=== PATIENT | female | born 1960 | race Caucasian/White ===

== ENCOUNTER → 2018-11-20 | Outpatient (CLI) | payer MEDICARE, OTHER ==
[2018-11-20 15:51] LABS: ABSOLUTE BASOPHILS # (AUTO) 0.1 10^3/uL (0.0-0.2); ABSOLUTE EOSINOPHILS # (AUTO) 0.4 10^3/uL (0.0-0.6); ABSOLUTE LYMPHOCYTES (AUTO) 3.3 10^3/uL (0.5-4.7); ABSOLUTE MONOCYTES (AUTO) 1.7 10^3/uL (0.1-1.4); ABSOLUTE NEUT (AUTO) 10.1 10^3/uL (1.7-8.2); BASOPHILS % (AUTO) 0.4 % (0-2); EOSINOPHILS % (AUTO) 2.7 % (0-6); HEMATOCRIT 44.2 % (36.0-47.0); HEMOGLOBIN 14.8 g/dL (12.0-15.5); LYMPHOCYTES % (AUTO) 21.2 % (13-45); MEAN CORPUSCULAR HEMOGLOBIN 30.8 pg (27.0-33.4); MEAN CORPUSCULAR HGB CONC 33.5 g/dL (32.0-36.0); MEAN CORPUSCULAR VOLUME 92 fl (80-97); MONOCYTES % (AUTO) 11.2 % (3-13); PLATELET COUNT 484 10^3/uL (150-450); RED BLOOD COUNT 4.81 10^6/uL (3.72-5.28); RED CELL DISTRIBUTION WIDTH 14.7 % (11.5-14.0); SEGMENTED NEUTROPHILS % (AUTO) 64.5 % (42-78); TOTAL CELLS COUNTED % (AUTO) 100 %; WHITE BLOOD COUNT 15.6 10^3/uL (4.0-10.5)
[2018-11-20 15:54] LABS: APPEARANCE,URINE CLOUDY; BILIRUBIN,URINE NEGATIVE (NEGATIVE); COLOR,URINE AMBER; GLUCOSE, URINE NEGATIVE (NEGATIVE); KETONES,URINE NEGATIVE (NEGATIVE); LEUKOCYTE ESTERASE,URINE LARGE (NEGATIVE); NITRITE,URINE NEGATIVE (NEGATIVE); PROTEIN,URINE 100 mg/dL (NEGATIVE); URINE SPECIFIC GRAVITY 1.016; UROBILINOGEN,URINE NEGATIVE mg/dL (<2.0)
[2018-11-20 16:06] LABS: ANION GAP 15 (5-19); BLOOD UREA NITROGEN 19 mg/dL (7-20); CALCIUM 10.1 mg/dL (8.4-10.2); CARBON DIOXIDE 15 mmol/L (22-30); CHLORIDE 110 mmol/L (98-107); GLUCOSE 124 mg/dL (75-110); POTASSIUM 4.6 mmol/L (3.6-5.0); SODIUM 139.8 mmol/L (137-145)
--- NOTE | 2018-11-20 16:09 | RADIOLOGY REPORT (SQ) ---
EXAM DESCRIPTION: CHEST PA/LATERAL COMPLETED DATE/TIME: 11/20/2018 3:37 pm REASON FOR STUDY: ESSENTIAL (PRIMARY) HYPERTENSION COMPARISON: None. EXAM PARAMETERS: NUMBER OF VIEWS: two views TECHNIQUE: Digital Frontal and Lateral radiographic views of the chest acquired. RADIATION DOSE: NA LIMITATIONS: none FINDINGS: LUNGS AND PLEURA: No opacities, masses or pneumothorax. No pleural effusion. MEDIASTINUM AND HILAR STRUCTURES: Large retrocardiac hiatal hernia containing the stomach fundus with air-fluid level. HEART AND VASCULAR STRUCTURES: Heart normal size. No evidence for failure. BONES: Diffuse degenerative disc changes thoracic spine HARDWARE: None in the chest. OTHER: No other significant finding. IMPRESSION: No acute infiltrates. Retrocardiac hiatal hernia with air-fluid level TECHNICAL DOCUMENTATION: JOB ID: [id number] [employer]- All Rights Reserved Reading location - IP/workstation name: [email or web address]
--- NOTE | 2018-11-20 23:22 | EKG REPORT ---
SEVERITY:- ABNORMAL ECG - SINUS TACHYCARDIA MULTIPLE ATRIAL PREMATURE COMPLEXES PROBABLE LEFT ATRIAL ABNORMALITY BORDERLINE INFERIOR Q WAVES : Confirmed by: Eusebio Hoskins 20-Nov-2018 23:21:40
== END ==
LOC: OD 14:53
PROVIDERS: ATTEND Orthopaedic Surgery
DX: Z01.810 Encounter for preprocedural cardiovascular examination (principal); Z01.811 Encounter for preprocedural respiratory examination; Z01.812 Encounter for preprocedural laboratory examination; M16.11 Unilateral primary osteoarthritis, right hip; I10 Essential (primary) hypertension
CPT/HCPCS: 36415; 71046; 80048; 81001; 85025; 93005; 93010

== ENCOUNTER → 2019-01-04 | Outpatient (CLI) | payer MEDICARE, OTHER ==
--- NOTE | 2019-01-04 12:11 | RADIOLOGY REPORT (SQ) ---
EXAM DESCRIPTION: U/S RETROPERITON (RENAL/AORTA) COMPLETED DATE/TIME: 01/04/2019 11:59 am REASON FOR STUDY: N18.3 CHRONIC KIDNEY DISEASE, STAGE 3 (MODERATE) N18.3 CHRONIC KIDNEY DISEASE, ST AGE 3 (MODERATE) COMPARISON: None. TECHNIQUE: Dynamic and static grayscale images acquired of the kidneys and bladder and recorded on P ACS. Additional selected color Doppler and spectral images recorded. LIMITATIONS: None. FINDINGS: RIGHT KIDNEY: Asymmetrically small measuring 8.7 cm. Normal echogenicity. No solid or susp icious masses. No hydronephrosis. No calcifications. LEFT KIDNEY: Normal size measuring 10.3 cm. Normal echogenicity. No solid or suspicious masses. No h ydronephrosis. No calcifications. BLADDER: No masses. OTHER FINDINGS: No other significant finding. IMPRESSION: No hydronephrosis. Asymmetrically small right kidney. Otherwise unremarkable renal ultrasound. TECHNICAL DOCUMENTATION: JOB ID: [id number] [employer]- All Rights Reserved Reading location - IP/workstation name: [email or web address]
== END ==
LOC: RAD 11:04
PROVIDERS: ATTEND Internal Medicine Nephrology
DX: N18.3 Chronic kidney disease, stage 3 (moderate) (principal)
CPT/HCPCS: 76770

== ENCOUNTER → 2019-03-29 | Outpatient (CLI) | payer MEDICARE, OTHER ==
[2019-03-29 13:27] LABS: ABSOLUTE BASOPHILS # (AUTO) 0.1 10^3/uL (0.0-0.2); ABSOLUTE EOSINOPHILS # (AUTO) 0.7 10^3/uL (0.0-0.6); ABSOLUTE LYMPHOCYTES (AUTO) 2.7 10^3/uL (0.5-4.7); ABSOLUTE MONOCYTES (AUTO) 1.5 10^3/uL (0.1-1.4); ABSOLUTE NEUT (AUTO) 10.3 10^3/uL (1.7-8.2); BASOPHILS % (AUTO) 0.6 % (0-2); EOSINOPHILS % (AUTO) 4.3 % (0-6); HEMOGLOBIN 14.2 g/dL (12.0-15.5); LYMPHOCYTES % (AUTO) 17.8 % (13-45); MEAN CORPUSCULAR HGB CONC 33.9 g/dL (32.0-36.0); MEAN CORPUSCULAR VOLUME 91 fl (80-97); MONOCYTES % (AUTO) 9.7 % (3-13); PLATELET COUNT 380 10^3/uL (150-450); RED BLOOD COUNT 4.59 10^6/uL (3.72-5.28); RED CELL DISTRIBUTION WIDTH 15.1 % (11.5-14.0); SEGMENTED NEUTROPHILS % (AUTO) 67.6 % (42-78); TOTAL CELLS COUNTED % (AUTO) 100 %; WHITE BLOOD COUNT 15.2 10^3/uL (4.0-10.5)
--- NOTE | 2019-03-29 13:27 | RADIOLOGY REPORT (SQ) ---
EXAM DESCRIPTION: CHEST PA/LATERAL COMPLETED DATE/TIME: 03/29/2019 12:58 pm REASON FOR STUDY: PRE-OP COMPARISON: 11/20/2018 EXAM PARAMETERS: NUMBER OF VIEWS: two views TECHNIQUE: Digital Frontal and Lateral radiographic views of the chest acquired. RADIATION DOSE: NA LIMITATIONS: none FINDINGS: LUNGS AND PLEURA: No opacities, masses or pneumothorax. No pleural effusion. MEDIASTINUM AND HILAR STRUCTURES: No masses or contour abnormalities. HEART AND VASCULAR STRUCTURES: Heart normal size. No evidence for failure. BONES: No acute findings. HARDWARE: None in the chest. OTHER: Large hiatal hernia. IMPRESSION: No acute findings in the chest. TECHNICAL DOCUMENTATION: JOB ID: [id number] [employer]- All Rights Reserved Reading location - IP/workstation name: [email or web address]
[2019-03-29 13:29] LABS: APPEARANCE,URINE CLOUDY; BILIRUBIN,URINE NEGATIVE (NEGATIVE); COLOR,URINE YELLOW; GLUCOSE, URINE NEGATIVE (NEGATIVE); KETONES,URINE TRACE mg/dL (NEGATIVE); LEUKOCYTE ESTERASE,URINE LARGE (NEGATIVE); NITRITE,URINE POSITIVE (NEGATIVE); PROTEIN,URINE 100 mg/dL (NEGATIVE); URINE SPECIFIC GRAVITY 1.018; UROBILINOGEN,URINE NEGATIVE mg/dL (<2.0)
[2019-03-29 13:45] LABS: ANION GAP 13 (5-19); BLOOD UREA NITROGEN 25 mg/dL (7-20); CALCIUM 9.8 mg/dL (8.4-10.2); CARBON DIOXIDE 22 mmol/L (22-30); CHLORIDE 105 mmol/L (98-107); GLUCOSE 87 mg/dL (75-110); POTASSIUM 4.6 mmol/L (3.6-5.0)
--- NOTE | 2019-03-29 18:16 | EKG REPORT ---
SEVERITY:- BORDERLINE ECG - SINUS TACHYCARDIA PROBABLE LEFT ATRIAL ABNORMALITY : Confirmed by: Dallin Rosenberg MD 29-Mar-2019 18:15:58
== END ==
LOC: OD 12:30
PROVIDERS: ATTEND Orthopaedic Surgery
DX: M16.11 Unilateral primary osteoarthritis, right hip (principal); I10 Essential (primary) hypertension; Z01.812 Encounter for preprocedural laboratory examination; Z01.811 Encounter for preprocedural respiratory examination; Z01.810 Encounter for preprocedural cardiovascular examination
CPT/HCPCS: 36415; 71046; 80048; 81001; 85025; 93005; 93010

== ENCOUNTER 2019-04-17 08:10 | Inpatient (IN) | payer MEDICARE, OTHER ==
[~2019-04-17 08:10] MED LIST: BUPIVACAINE INJ/PF LIPOSOME/PF 266 MG/20 ML SDV INJ PRN; CEFAZOLIN INJ 1 GM VIAL IV PRN; IBUPROFEN 800 MG in NORMAL SALINE 250 ML IV PRN; LACTATED RINGERS 1000 ML IV PRN; LIDOCAINE 0.5% INJ-PF (5 MG/ML) 50 ML SDV SUBCUT PRN; OXYCODONE HCL SR 10 MG TABLET PO PRN; PANTOPRAZOLE SODIUM 20 MG TABLET.DR PO PRN; VANCOMYCIN HCL 1,000 MG in DEXTROSE 5%-WATER 250 ML IV PRN
[2019-04-17] MEDS ORDERED: CEFAZOLIN INJ 1 GM VIAL ONE (09:26)
[2019-04-17] MEDS ORDERED: PANTOPRAZOLE SODIUM 20 MG TABLET.DR PO ONE (09:26)
[2019-04-17] MEDS ORDERED: OXYCODONE HCL SR 10 MG TABLET PO ONE (09:26)
[2019-04-17] MEDS ORDERED: PHENYLEPHRINE HCL INJ/PF 10 MG/1 ML SDV ONE (09:34)
[2019-04-17] MEDS ORDERED: PROPOFOL INJ 200 MG/20 ML VIAL IV ONE (11:00)
[2019-04-17] MEDS ORDERED: EPHEDRINE SULFATE INJ 50 MG/1 ML AMPULE ONE (11:01)
[2019-04-17] MEDS ORDERED: FENTANYL CITRATE INJ/PF 100 MCG/2 ML AMPUL ONE (11:01)
[2019-04-17] MEDS ORDERED: TRANEXAMIC ACID INJ/PF 1,000 MG/10 ML SDV ONE ×2 (11:01→14:51)
[2019-04-17] MEDS ORDERED: MIDAZOLAM 2 MG/2 ML INJ ONE (11:01)
[2019-04-17] MEDS ORDERED: FENTANYL CITRATE INJ/PF 100 MCG/2 ML AMPUL IV PRN ×3 (12:16)
[2019-04-17] MEDS ORDERED: MEPERIDINE HCL/PF INJ 25 MG/1 ML DISP.SYRIN IV PRN (12:16)
[2019-04-17] MEDS ORDERED: PROMETHAZINE HCL INJ 25 MG/1 ML VIAL IV PRN ×2 (12:16)
[2019-04-17] MEDS ORDERED: ONDANSETRON HCL INJ/PF 4 MG/2 ML SDV IV PRN ×2 (12:16→12:44)
[2019-04-17] MEDS ORDERED: DIPHENHYDRAMINE HCL 50 MG/ML VIAL IV PRN ×2 (12:16→12:44)
--- NOTE | 2019-04-17 12:42 | Operative Report ---
Operative Report DATE OF SURGERY: 04/17/19 PREOPERATIVE DIAGNOSIS: Right knee arthritis OPERATION: Right knee arthroplasty SURGEON: MAYCOL AVELAR ANESTHESIA: Spinal TISSUE REMOVED OR ALTERED: Bone to pathology ESTIMATED BLOOD LOSS: 75 PROCEDURE: Implants used: Femur: [place] triathlon size 4 CR uncemented femur Tibia: 4 uncemented tibia Tibial liner: 9 mm CS insert Patella: 35 mm uncemented patella Procedure with the patient supine on the operating table the right the limb is prepped and draped in a sterile fashion. The limb was elevated for exsanguination and the tourniquet inflated to 280 torr. A standard midline median parapatellar approach the knee is taken. Access is gained to the femoral canal through the intercondylar notch. Intramedullary alignment instrumentation used to resect 10 mm of distal femur in 5 of valgus. Sizing guide indicated a size 4 femur. Appropriate cutting jig is then used to fashion anterior posterior and chamfer cuts. A trial reduction femurs performed and this is judged to be adequate. Attention was next turned to the tibia. Using an extra medullary alignment system 9 millimeters was resected off the lateral tibial plateau. This is sized to a size 4 tibia. A trial reduction was now performed with a 4 femur and a 4 tibia using a 9 millimeters spacer. It is full extension and central patellofemoral tracking. The articular surface the patella was next resected using an oscillating saw. All trial implants were removed. the tourniquet was deflated hemostasis obtained the wound is then closed in layers using interrupted Vicryl followed by neida. A sterile compressive dressing was applied and the patient returned to recovery room in satisfactory condition.
[2019-04-17] MEDS ORDERED: MAG HYDROX/AL HYDROX/SIMETH SUSP 30 ML UDCUP PO PRN (12:44)
[2019-04-17] MEDS ORDERED: ZOLPIDEM TARTRATE 5 MG TABLET PO PRN (12:44)
[2019-04-17] MEDS ORDERED: ONDANSETRON 4 MG TAB.RAPDIS PO PRN (12:44)
[2019-04-17] MEDS ORDERED: GABAPENTIN 300 MG CAPSULE PO SCH (14:00)
--- NOTE | 2019-04-17 14:56 | RADIOLOGY REPORT (SQ) ---
EXAM DESCRIPTION: KNEE RIGHT 2 VIEWS COMPLETED DATE/TIME: 04/17/2019 2:38 pm REASON FOR STUDY: Post OP -Long Cassette in PACU M17.11 UNILATERAL PRIMARY OSTEOARTHRITIS, RIGHT KN EE COMPARISON: None. NUMBER OF VIEWS: Two views. TECHNIQUE: AP and lateral radiographic images acquired of the right knee. LIMITATIONS: None. FINDINGS: MINERALIZATION: Normal. BONES: Status post right TKA. The hardware is in anatomic alignment. There is no periprosthetic fra cture. There is expected intra-articular and subcutaneous emphysema. JOINT: As above. SOFT TISSUES: As above. OTHER: Surgical neida in place. IMPRESSION: Uncomplicated right TKA with expected immediate postoperative findings. TECHNICAL DOCUMENTATION: JOB ID: [id number] [employer]- All Rights Reserved Reading location - IP/workstation name: [email or web address]
[2019-04-17] MEDS ORDERED: TRANEXAMIC ACID INJ/PF 1,000 MG/10 ML SDV IV ONE (15:00)
[2019-04-17] MEDS ORDERED: IBUPROFEN 800 MG in NORMAL SALINE 250 ML IV SCH (15:00)
[2019-04-17] MEDS: OXYCODONE HCL IR 5 MG TABLET PO PRN ×2 (16:01→22:20)
[2019-04-17] MEDS: PANTOPRAZOLE SODIUM 20 MG TABLET.DR PO SCH (17:19)
[2019-04-17] MEDS: SENNOSIDES/DOCUSATE 8.6-50 MG 1 EACH TABLET PO SCH (17:19)
[2019-04-17] MEDS ORDERED: (PENDING PHARMACY ID) (Topiramate [Topiramate] 50 MG) PO SCH (18:00)
[2019-04-17] MEDS: RINGERS SOLUTION,LACTATED 1,000 ML IV PRN (18:03)
[2019-04-17] MEDS: IBUPROFEN 800 MG in NORMAL SALINE 250 ML IV SCH (18:04)
[2019-04-17] MEDS ORDERED: OXYCODONE HCL IR 5 MG TABLET PO ONE (18:15)
[2019-04-17] MEDS: TOPIRAMATE 25 MG TABLET PO SCH (21:17)
[2019-04-17] MEDS: GABAPENTIN 300 MG CAPSULE PO SCH (21:17)
[2019-04-17] MEDS: OXYCODONE HCL SR 10 MG TABLET PO SCH (21:17)
[2019-04-18] MEDS ORDERED: VANCOMYCIN HCL 1,000 MG in DEXTROSE 5%-WATER 250 ML IV ONE ×2 (00:45→03:00)
[2019-04-18] MEDS: MORPHINE SULFATE 10 MG/ML INJ IV PRN ×3 (02:19→06:46)
[2019-04-18] MEDS: IBUPROFEN 800 MG in NORMAL SALINE 250 ML IV SCH ×3 (02:19→17:00)
[2019-04-18] MEDS ORDERED: VANCOMYCIN HCL INJ 1000 MG VIAL ONE (02:20)
[2019-04-18] MEDS: GABAPENTIN 300 MG CAPSULE PO SCH ×3 (05:18→21:38)
[2019-04-18] MEDS: PANTOPRAZOLE SODIUM 20 MG TABLET.DR PO SCH ×2 (05:19→16:58)
[2019-04-18] MEDS: LEVOTHYROXINE SODIUM 0.05 MG TABLET PO SCH (05:19)
[2019-04-18 06:00] LABS: HEMATOCRIT 36.9 % (36.0-47.0); HEMOGLOBIN 12.3 g/dL (12.0-15.5); MEAN CORPUSCULAR HEMOGLOBIN 30.8 pg (27.0-33.4); MEAN CORPUSCULAR HGB CONC 33.3 g/dL (32.0-36.0); MEAN CORPUSCULAR VOLUME 92 fl (80-97); PLATELET COUNT 324 10^3/uL (150-450); RED BLOOD COUNT 3.99 10^6/uL (3.72-5.28); RED CELL DISTRIBUTION WIDTH 15.1 % (11.5-14.0); WHITE BLOOD COUNT 15.6 10^3/uL (4.0-10.5)
[2019-04-18 06:20] LABS: ANION GAP 11 (5-19); BLOOD UREA NITROGEN 24 mg/dL (7-20); CALCIUM 9.2 mg/dL (8.4-10.2); CARBON DIOXIDE 22 mmol/L (22-30); CHLORIDE 105 mmol/L (98-107); GLUCOSE 121 mg/dL (75-110); POTASSIUM 4.5 mmol/L (3.6-5.0)
--- NOTE | 2019-04-18 07:04 | PDOC PROGRESS REPORT ---
Subjective Progress Note for:: 04/18/19 Reason For Visit: M17.11 UNILATERAL PRIMARY OSTEOARTHRITIS, RIGHT KN 59-year-old white female now postop day 1 status post right knee arthroplasty. Issues with pain control overnight requiring parenteral analgesics. Physical Exam Vital Signs: Temp Pulse Resp BP Pulse Ox 36.8 C 94 20 135/75 H 97 04/17/19 23:32 04/17/19 23:32 04/17/19 23:32 04/17/19 23:32 04/17/19 23:32 Intake & Output 04/17/19 04/18/19 04/19/19 06:59 06:59 06:59 Intake Total 8779 Output Total 3109 Balance 5670 Weight 115.2 kg Physical Exam: Overweight if not obese middle-aged white female lying in bed. Patient is alert, cooperative, and appropriate. General appearance: PRESENT: mild distress Head exam: PRESENT: normocephalic Respiratory exam: PRESENT: unlabored Cardiovascular exam: PRESENT: RRR Pulses: PRESENT: +1 pedal pulses bilateral Vascular exam: PRESENT: normal capillary refill GI/Abdominal exam: PRESENT: soft Rectal exam: PRESENT: deferred Extremities exam: PRESENT: other - Right lower extremity dressing clean dry and intact. Brisk capillary refill distally. Neurological exam: PRESENT: alert, awake, oriented to person, oriented to place, oriented to time, oriented to situation. ABSENT: motor sensory deficit Psychiatric exam: PRESENT: appropriate affect, normal mood. ABSENT: homicidal ideation, suicidal ideation Skin exam: PRESENT: dry, intact, warm. ABSENT: cyanosis, rash Results Laboratory Results: 04/18/19 04:25 04/18/19 04:25 04/18/19 04/18/19 04:25 04:25 WBC 15.6 H RBC 3.99 Hgb 12.3 Hct 36.9 MCV 92 MCH 30.8 MCHC 33.3 RDW 15.1 H Plt Count 324 Sodium 138.1 Potassium 4.5 Chloride 105 Carbon Dioxide 22 Anion Gap 11 BUN 24 H Creatinine 1.70 H Est GFR ( Amer) 37 L Glucose 121 H Calcium 9.2 Impressions: Knee X-Ray 04/17/19 12:46 IMPRESSION: Uncomplicated right TKA with expected immediate postoperative findings. Status: Imported from PACS Assessment & Plan - Diagnosis (1) Arthritis of right knee Is this a current diagnosis for this admission?: Yes Plan: Patient to be mobilized with physical therapy and weightbearing as tolerated basis. Anticipate discharge home tomorrow with home health services. - Time Time Spent with patient: 15-24 minutes Anticipated discharge: Home with Homehealth Within: within 24 hours
[2019-04-18] MEDS: OXYCODONE HCL IR 5 MG TABLET PO PRN ×3 (08:32→23:41)
[2019-04-18] MEDS: PRENATAL VITAMIN W DHA CAPSULE PO SCH (09:47)
[2019-04-18] MEDS: VENLAFAXINE HCL 75 MG CAP.SR.24H PO SCH (09:50)
[2019-04-18] MEDS: OXYCODONE HCL SR 10 MG TABLET PO SCH ×2 (09:52→21:37)
[2019-04-18] MEDS: ASPIRIN 81 MG TABLET, ENT COATED PO SCH (09:53)
[2019-04-18] MEDS: TOPIRAMATE 25 MG TABLET PO SCH ×2 (09:53→21:37)
[2019-04-18] MEDS: LISINOPRIL 10 MG TABLET PO SCH (09:54)
[2019-04-18] MEDS: AMLODIPINE BESYLATE 5 MG TABLET PO SCH (09:55)
[2019-04-18] MEDS: ATORVASTATIN CALCIUM 20 MG TABLET PO SCH (09:56)
[2019-04-18] MEDS: HYDROCHLOROTHIAZIDE 12.5 MG TABLET PO SCH (09:56)
[2019-04-18] MEDS: SENNOSIDES/DOCUSATE 8.6-50 MG 1 EACH TABLET PO SCH ×2 (09:57→17:01)
[2019-04-18] MEDS ORDERED: DESVENLAFAXINE SUCCINATE 100 MG PO SCH (10:00)
[2019-04-18] MEDS ORDERED: (PENDING PHARMACY ID) (Tiotropium Bromide [Spiriva Handihaler 5 Cap/Kit (18 Mcg/Cap)] 1 PU IN SCH (10:00)
[2019-04-18] MEDS: UMECLIDINIUM BROMIDE 62.5 MCG/DOSE IH SCH (11:56)
[2019-04-18] MEDS: RINGERS SOLUTION,LACTATED 1,000 ML IV PRN (17:05)
[2019-04-18] MEDS: ACETAMINOPHEN 325 MG TABLET PO PRN (19:46)
[2019-04-19] MEDS: IBUPROFEN 800 MG in NORMAL SALINE 250 ML IV SCH ×2 (01:29→09:31)
[2019-04-19 06:19] LABS: HEMATOCRIT 31.6 % (36.0-47.0); HEMOGLOBIN 10.6 g/dL (12.0-15.5); MEAN CORPUSCULAR HEMOGLOBIN 30.9 pg (27.0-33.4); MEAN CORPUSCULAR HGB CONC 33.6 g/dL (32.0-36.0); MEAN CORPUSCULAR VOLUME 92 fl (80-97); PLATELET COUNT 283 10^3/uL (150-450); RED BLOOD COUNT 3.44 10^6/uL (3.72-5.28); RED CELL DISTRIBUTION WIDTH 14.8 % (11.5-14.0)
[2019-04-19] MEDS: GABAPENTIN 300 MG CAPSULE PO SCH ×2 (06:28→13:27)
[2019-04-19] MEDS: OXYCODONE HCL IR 5 MG TABLET PO PRN ×2 (06:28→12:39)
[2019-04-19] MEDS: PANTOPRAZOLE SODIUM 20 MG TABLET.DR PO SCH (06:29)
[2019-04-19] MEDS: LEVOTHYROXINE SODIUM 0.05 MG TABLET PO SCH (06:31)
--- NOTE | 2019-04-19 06:54 | PDOC DISCHARGE SUMMARY ---
Impression - Admit/DC Date/PCP Admission Date/Primary Care Provider: 04/17/19 08:16 TAYLOR RESTREPO PA-C Discharge Date: 04/19/19 - Discharge Diagnosis (1) Arthritis of right knee Is this a current diagnosis for this admission?: Yes - Additional Information Resuscitation Status: Full Code Discharge Diet: Regular Discharge Activity: Balance Activity w/Rest, No tub bath Referrals: MAYCOL AVELAR MD [ACTIVE STAFF] - 04/30/19 1:30 pm Home Medications: Amlodipine Besylate [Norvasc 5 mg Tablet] 5 mg PO DAILY 11/22/18 Atorvastatin Calcium [Lipitor 20 mg Tablet] 20 mg PO QHS 11/22/18 Bupropion HCl [Bupropion HCl Sr] 150 mg PO DAILY 11/22/18 Celecoxib [Celebrex 100 mg Capsule] 100 mg PO Q12 11/22/18 Desvenlafaxine Succinate [Desvenlafaxine Succinate ER] 100 mg PO DAILY 11/22/18 Gabapentin [Neurontin 300 mg Capsule] 300 mg PO Q8 11/22/18 Levothyroxine Sodium 50 mcg PO DAILY 11/22/18 Lidocaine [Lidoderm 5% (700 mg) Transdermal Patch] 1 patch TOP DAILY 11/22/18 Lisinopril/Hydrochlorothiazide [Lisinopril-Hctz 10-12.5 mg Tab] 10 - 12.5 mg PO DAILY 11/22/18 Methyl Salicylate/Menth/Camph [Pain Relief Cream] 1 dose TOP DAILYP PRN 11/22/18 Naloxone HCl [Narcan] 1 applic NAREB .FOR OPIOID OVERDOSE PRN 11/22/18 Omeprazole 20 mg PO BID 11/22/18 Oxycodone HCl/Acetaminophen [Oxycodone-Acetaminophen 10-325] 10 - 325 mg PO Q6HP PRN 11/22/18 Tiotropium [place] [Spiriva Handihaler 5 Cap/Kit (18 Mcg/Cap)] 1 puff IN DAILY 11/22/18 Topiramate 50 mg PO Q12 11/22/18 Albuterol Sulfate [Albuterol Sulfate Hfa] 2 puff IH Q6HP PRN 04/17/19 History of Present Illiness History of Present Illness: ANTHONY PEÑA is a 59 year old female 59-year-old white female with progressive right knee pain and functional disability second osteoarthritis. Patient is admitted for elective right knee arthroplasty. Hospital Course Hospital Course: Patient is admitted through the operating where she undergoes uncomplicated right knee arthroplasty. She was returned to floor in satisfactory condition. Initially some nausea and delays physical therapy bit but eventually patient is able to make significant progress with physical therapy to a functional level which she is comfortable going home at. Physical Exam Vital Signs: Temp Pulse Resp BP Pulse Ox 36.9 C 93 17 127/73 H 99 04/18/19 23:52 04/18/19 23:52 04/18/19 23:52 04/18/19 23:52 04/18/19 23:52 Intake & Output 04/17/19 04/18/19 04/19/19 06:59 06:59 06:59 Intake Total 8779 2260 Output Total 3109 100 Balance 5670 2160 Weight 115.2 kg 115.4 kg General appearance: PRESENT: no acute distress Respiratory exam: PRESENT: unlabored Cardiovascular exam: PRESENT: RRR Vascular exam: PRESENT: normal capillary refill GI/Abdominal exam: PRESENT: soft Rectal exam: PRESENT: deferred Musculoskeletal exam: PRESENT: other - Rest of dressings removed from the right lower extremity. Underlying OpSite dressings clean dry and intact. Minimal pedal edema. Distal neurovascular examination is intact. Neurological exam: PRESENT: alert, awake, oriented to person, oriented to place, oriented to time, oriented to situation. ABSENT: motor sensory deficit Psychiatric exam: PRESENT: appropriate affect, normal mood. ABSENT: homicidal ideation, suicidal ideation Skin exam: PRESENT: dry, intact, warm. ABSENT: cyanosis, rash Results Laboratory Results: WBC 15.0 10^3/uL (4.0-10.5) H 04/19/19 05:08 RBC 3.44 10^6/uL (3.72-5.28) L 04/19/19 05:08 Hgb 10.6 g/dL (12.0-15.5) L 04/19/19 05:08 Hct 31.6 % (36.0-47.0) L 04/19/19 05:08 MCV 92 fl (80-97) 04/19/19 05:08 MCH 30.9 pg (27.0-33.4) 04/19/19 05:08 MCHC 33.6 g/dL (32.0-36.0) 04/19/19 05:08 RDW 14.8 % (11.5-14.0) H 04/19/19 05:08 Plt Count 283 10^3/uL (150-450) 04/19/19 05:08 Sodium 138.1 mmol/L (137-145) 04/18/19 04:25 Potassium 4.5 mmol/L (3.6-5.0) 04/18/19 04:25 Chloride 105 mmol/L (98-107) 04/18/19 04:25 Carbon Dioxide 22 mmol/L (22-30) 04/18/19 04:25 Anion Gap 11 (5-19) 04/18/19 04:25 BUN 24 mg/dL (7-20) H 04/18/19 04:25 Creatinine 1.70 mg/dL (0.52-1.25) H 04/18/19 04:25 Est GFR ( Amer) 37 (>60) L 04/18/19 04:25 Est GFR (MDRD) Non-Af 31 (>60) L 04/18/19 04:25 Glucose 121 mg/dL (75-110) H 04/18/19 04:25 Calcium 9.2 mg/dL (8.4-10.2) 04/18/19 04:25 Impressions: Knee X-Ray 04/17/19 12:46 IMPRESSION: Uncomplicated right TKA with expected immediate postoperative findings. Plan Plan of Treatment: Patient be discharged home on a weightbearing as tolerated basis with home health services and DME. Follow-up with Dr. Avelar and [facility] surgery in 2 weeks for staple removal. Time Spent: Less than 30 Minutes Stroke Is this a Stroke Patient?: No Stroke Pt being discharged on Anti-thrombolytic therapy?: Yes Acute Heart Failure - Is this a Heart Failure Patient?: No
[2019-04-19] MEDS: UMECLIDINIUM BROMIDE 62.5 MCG/DOSE IH SCH (09:35)
[2019-04-19] MEDS: HYDROCHLOROTHIAZIDE 12.5 MG TABLET PO SCH (09:35)
[2019-04-19] MEDS: PRENATAL VITAMIN W DHA CAPSULE PO SCH (09:35)
[2019-04-19] MEDS: OXYCODONE HCL SR 10 MG TABLET PO SCH (09:36)
[2019-04-19] MEDS: TOPIRAMATE 25 MG TABLET PO SCH (09:36)
[2019-04-19] MEDS: SENNOSIDES/DOCUSATE 8.6-50 MG 1 EACH TABLET PO SCH (09:37)
[2019-04-19] MEDS: ATORVASTATIN CALCIUM 20 MG TABLET PO SCH (09:37)
[2019-04-19] MEDS: AMLODIPINE BESYLATE 5 MG TABLET PO SCH (09:38)
[2019-04-19] MEDS: VENLAFAXINE HCL 75 MG CAP.SR.24H PO SCH (09:38)
[2019-04-19] MEDS: LISINOPRIL 10 MG TABLET PO SCH (09:38)
[2019-04-19] MEDS: ASPIRIN 81 MG TABLET, ENT COATED PO SCH (09:38)
[2019-04-19 09:43] VITALS: BP 108/66
[2019-04-19] MEDS: ACETAMINOPHEN 325 MG TABLET PO PRN (11:28)
--- NOTE | 2019-04-27 07:05 | PDOC H&P ---
History of Present Illness Admission Date/PCP: 04/17/19 08:16 TAYLOR RESTREPO PA-C History of Present Illness: 59-year-old white female with progressive right knee pain and functional disab ility second osteoarthritis. Patient is admitted for elective right knee arthroplasty. Past Medical History Cardiac Medical History: Reports: Hypertension Denies: Atrial Fibrillation, Congestive Heart Failure, Coronary Artery Disease, Myocardial Infarction, Hyperlipidema, Peripheral Vascular Disease, Pulmonary Embolism, Heart Murmur Pulmonary Medical History: Reports: Chronic Obstructive Pulmonary Disease (COPD) Denies: Asthma, Bronchitis, Pneumonia, Respiratory Failure, Sleep Apnea, Tuberculosis Neurological Medical History: Denies: Seizures Endocrine Medical History: Denies: Hyperthyroidism, Hypothyroidism Malignancy Medical History: Denies: Lung Cancer Comment Only: Breast Cancer - right breast biopsy GI Medical History: Reports: Gastroesophageal Reflux Disease, Hiatal Hernia Denies: Crohn's Disease Musculoskeltal Medical History: Reports: Arthritis Denies: Fibromyalgia Psychiatric Medical History: Reports: Depression Denies: Bipolar Disorder, Post Traumatic Stress Disorder Hematology: Denies: Anemia Past Surgical History Past Surgical History: Reports: Section, Hysterectomy Denies: Amputation, Appendectomy, Cholecystectomy, Colostomy, Coronary Artery Bypass Graft, Gastric Bypass Surgery, Herniorrhaphy, Mastectomy, Pacemaker, Tonsillectomy, Tubal Ligation Social History Information Source: Patient, [facility], [facility] Smoking Status: Current Every Day Smoker Cigarettes Packs Per Day: 0.5 Hx Recreational Drug Use: No Hx Prescription Drug Abuse: No - Advance Directive Resuscitation Status: Full Code Family History Parental Family History Reviewed: No Children Family History Reviewed: No Sibling(s) Family History Reviewed.: No Medication/Allergy Home Medications: Amlodipine Besylate [Norvasc 5 mg Tablet] 5 mg PO DAILY 11/22/18 Atorvastatin Calcium [Lipitor 20 mg Tablet] 20 mg PO QHS 11/22/18 Bupropion HCl [Bupropion HCl Sr] 150 mg PO DAILY 11/22/18 Celecoxib [Celebrex 100 mg Capsule] 100 mg PO Q12 11/22/18 Desvenlafaxine Succinate [Desvenlafaxine Succinate ER] 100 mg PO DAILY 11/22/18 Gabapentin [Neurontin 300 mg Capsule] 300 mg PO Q8 11/22/18 Levothyroxine Sodium 50 mcg PO DAILY 11/22/18 Lidocaine [Lidoderm 5% (700 mg) Transdermal Patch] 1 patch TOP DAILY 11/22/18 Lisinopril/Hydrochlorothiazide [Lisinopril-Hctz 10-12.5 mg Tab] 10 - 12.5 mg PO DAILY 11/22/18 Methyl Salicylate/Menth/Camph [Pain Relief Cream] 1 dose TOP DAILYP PRN 11/22/18 Naloxone HCl [Narcan] 1 applic NAREB .FOR OPIOID OVERDOSE PRN 11/22/18 Omeprazole 20 mg PO BID 11/22/18 Oxycodone HCl/Acetaminophen [Oxycodone-Acetaminophen 10-325] 10 - 325 mg PO Q6HP PRN 11/22/18 Tiotropium [place] [Spiriva Handihaler 5 Cap/Kit (18 Mcg/Cap)] 1 puff IN DAILY 11/22/18 Topiramate 50 mg PO Q12 11/22/18 Albuterol Sulfate [Albuterol Sulfate Hfa] 2 puff IH Q6HP PRN 04/17/19 Allergies/Adverse Reactions: acetaminophen [From Lortab] Allergy (Verified 04/08/19 11:55) fluconazole [From Diflucan] Allergy (Verified 04/17/19 13:57) Hives hydrocodone [From Lortab] Allergy (Verified 04/08/19 11:55) Review of Systems All systems: as per PMH Physical Exam Vital Signs: Temp Pulse Resp BP Pulse Ox 36.6 C 71 16 108/66 100 04/19/19 11:44 04/19/19 11:44 04/19/19 11:44 04/19/19 11:44 04/19/19 11:44 General appearance: PRESENT: no acute distress Head exam: PRESENT: normocephalic Respiratory exam: PRESENT: unlabored Cardiovascular exam: PRESENT: RRR Pulses: PRESENT: +1 pedal pulses bilateral GI/Abdominal exam: PRESENT: soft Extremities exam: PRESENT: other - Right knee with effusion, tenderness to palpation, crepitus associate with active range of motion, no ligamentous instability. Range of motion lacks approximately 10 degrees of full extension with further flexion 120 degrees. Neurological exam: PRESENT: alert, awake, oriented to person, oriented to place, oriented to time, oriented to situation. ABSENT: motor sensory deficit Psychiatric exam: PRESENT: appropriate affect, normal mood. ABSENT: homicidal ideation, suicidal ideation Skin exam: PRESENT: dry, intact, warm. ABSENT: cyanosis, rash Results Laboratory Results: 04/19/19 05:08 04/18/19 04:25 Impressions: Knee X-Ray 04/17/19 12:46 IMPRESSION: Uncomplicated right TKA with expected immediate postoperative findings. Status: Imported from PACS Assessment & Plan - Diagnosis (1) Arthritis of right knee Is this a current diagnosis for this admission?: Yes Plan: Plan for elective right knee arthroplasty.
== END 2019-04-19 14:25 | disposition home health service (06) | DRG 470 ==
LOC: INOR 08:16 → 4N 15:15
PROVIDERS: ADMIT Orthopaedic Surgery; ATTEND Orthopaedic Surgery
PROC: 0SRC0JA Replacement of Right Knee Joint with Synthetic Substitute, Uncemented, Open Approach (ICD-10-PCS; principal; 2019-04-17 10:30)
DX: M17.11 Unilateral primary osteoarthritis, right knee (principal); I10 Essential (primary) hypertension; J44.9 Chronic obstructive pulmonary disease, unspecified; K21.9 Gastro-esophageal reflux disease without esophagitis; F32.9 Major depressive disorder, single episode, unspecified; F17.210 Nicotine dependence, cigarettes, uncomplicated; Z79.899 Other long term (current) drug therapy
CPT/HCPCS: 01402; 36415; 80048; 85027; 88305; 88311; 94799; C1713; C1776; J0690; J1741; J2250; J2270; J2370; J2704; J3010; J3370; J3490; J7050; J7060; J7120

== ENCOUNTER 2019-04-27 13:00 | Emergency (ER) | payer MEDICARE, OTHER ==
--- NOTE | 2019-04-27 13:15 | ER Document Report ---
ED Medical Screen (RME) - General Chief Complaint: Post Surgical Pain Stated Complaint: POST SURGICAL PAIN Time Seen by Provider: 04/27/19 13:11 Primary Care Provider: TAYLOR RESTREPO PA-C [Primary Care Provider] - Follow up as needed Mode of Arrival: Wheelchair Information source: Patient Notes: Patient is 59-year-old female status post right knee replacement by Dr. Baird approximately 8 to 10 days ago presenting with increased pain. Patient reports increased pain over the last 24 to 48 hours. Patient reports she is taking her pain medications as prescribed. She also states there is been she believes to be increased bleeding since the time of the surgery. Dressing in place has been there since surgery. Exam: Swelling noted to right knee. Surgical dressing in place. I have greeted and performed a rapid initial assessment of this patient. A comprehensive ED assessment and evaluation of the patient, analysis of test results and completion of the medical decision making process will be conducted by additional ED providers. I have specifically instructed the patient or family members with the patient to immediately return to any nursing staff sh ould anything change in the patient's condition or with their chief complaint. This medical record was dictated with voice recognizing software. There may be grammatical, syntax errors that are unintended. TRAVEL OUTSIDE OF THE [place] IN LAST 30 DAYS: No - Related Data Allergies/Adverse Reactions: acetaminophen [From Lortab] Allergy (Verified 04/27/19 13:13) fluconazole [From Diflucan] Allergy (Verified 04/27/19 13:13) Hives hydrocodone [From Lortab] Allergy (Verified 04/27/19 13:13) Past Medical History - Social History Chew tobacco use (# tins/day): No Frequency of alcohol use: None Drug Abuse: None - Past Medical History Cardiac Medical History: Reports: Hx Hypertension Denies: Hx Atrial Fibrillation, Hx Congestive Heart Failure, Hx Coronary Artery Disease, Hx Heart Attack, Hx Hypercholesterolemia, Hx Peripheral Vascular Disease, Hx Pulmonary Embolism, Hx Heart Murmur Pulmonary Medical History: Reports: Hx COPD Denies: Hx Asthma, Hx Bronchitis, Hx Pneumonia, Hx Respiratory Failure, Hx Sleep Apnea, Hx Tuberculosis Neurological Medical History: Denies: Hx Cerebrovascular Accident, Hx Seizures Endocrine Medical History: Denies: Hx Hyperthyroidism, Hx Hypothyroidism Renal/ Medical History: Denies: Hx Kidney Stones Malignancy Medical History: Denies: Hx Lung Cancer. Comment Only: Hx Breast Cancer - right breast biopsy GI Medical History: Reports: Hx Gastroesophageal Reflux Disease, Hx Hiatal H ernia. Denies: Hx Crohn's Disease, Hx Irritable Bowel, Hx Liver Failure, Hx Pancreatitis, Hx Ulcer Musculoskeltal Medical History: Reports Hx Arthritis, Denies Hx Fibromyalgia, Denies Hx Muscular Dystrophy Psychiatric Medical History: Reports: Hx Depression Denies: Hx Bipolar Disorder, Hx Post Traumatic Stress Disorder, Hx Schizophrenia Traumatic Medical History: Denies: Hx Fractures Past Surgical History: Reports: Hx Section, Hx Hysterectomy. Denies: Hx Appendectomy, Hx Bowel Surgery, Hx Cholecystectomy, Hx Colostomy, Hx Coronary Artery Bypass Graft, Hx Gastric Bypass Surgery, Hx Herniorrhaphy, Hx Mastectomy, Hx Pacemaker, Hx Tonsillectomy, Hx Tubal Ligation Physical Exam - Vital signs Vitals: Temp Pulse Resp BP Pulse Ox 98.1 F 108 H 20 114/83 98 04/27/19 13:04 04/27/19 13:04 04/27/19 13:04 04/27/19 13:04 04/27/19 13:04 Course - Vital Signs Vital signs: Temp Pulse Resp BP Pulse Ox 98.1 F 108 H 20 114/83 98 04/27/19 13:04 04/27/19 13:04 04/27/19 13:04 04/27/19 13:04 04/27/19 13:04 Doctor's Discharge - Discharge Referrals: TAYLOR RESTREPO PA-C [Primary Care Provider] - Follow up as needed
[2019-04-27 14:03] LABS: HEMATOCRIT 33.3 % (36.0-47.0); HEMOGLOBIN 11.3 g/dL (12.0-15.5); MEAN CORPUSCULAR HEMOGLOBIN 30.9 pg (27.0-33.4); MEAN CORPUSCULAR VOLUME 91 fl (80-97); PLATELET COUNT 586 10^3/uL (150-450); RED BLOOD COUNT 3.66 10^6/uL (3.72-5.28); RED CELL DISTRIBUTION WIDTH 15.4 % (11.5-14.0); WHITE BLOOD COUNT 17.6 10^3/uL (4.0-10.5)
[2019-04-27 14:21] LABS: ALBUMIN 3.8 g/dL (3.5-5.0); ALKALINE PHOSPHATASE 106 U/L (38-126); ANION GAP 12 (5-19); ASPARTATE AMINO TRANSFERASE 28 U/L (14-36); BILIRUBIN,DIRECT 0.2 mg/dL (0.0-0.4); BILIRUBIN,TOTAL 0.4 mg/dL (0.2-1.3); BLOOD UREA NITROGEN 27 mg/dL (7-20); CALCIUM 9.5 mg/dL (8.4-10.2); CARBON DIOXIDE 24 mmol/L (22-30); CHLORIDE 101 mmol/L (98-107); POTASSIUM 4.5 mmol/L (3.6-5.0); TOTAL PROTEIN 7.1 g/dL (6.3-8.2)
[2019-04-27 14:27] LABS: GLUCOSE 70 mg/dL (75-110)
[2019-04-27 14:28] LABS: ABSOLUTE LYMPHOCYTES# (MANUAL) 3.3 10^3/uL (0.5-4.7); ABSOLUTE MONOCYTES # (MANUAL) 0.9 10^3/uL (0.1-1.4); BAND NEUTROPHILS % (MANUAL) 1 % (3-5); BASOPHILS % (MANUAL) 0 % (0-2); EOSINOPHILS % (MANUAL) 6 % (0-6); LYMPHOCYTES % (MANUAL) 18 % (13-45); METAMYELOCYTES % (MANUAL) 1 % (0-1); MONOCYTES % (MANUAL) 5 % (3-13); NUCLEATED RED BLOOD CELLS 1 /100 WBC (0); PROMYELOCYTES % (MANUAL) 1 % (0); SEGMENTED NEUTROPHILS % (MAN) 67 % (42-78); TOTAL CELLS COUNTED 100
[2019-04-27 14:29] LABS: SMUDGE CELLS PRESENT
[2019-04-27 14:30] LABS: ANISOCYTOSIS 1+; PLATELET COMMENT INCREASED
--- NOTE | 2019-04-27 14:46 | ER Document Report ---
ED General - General Chief Complaint: Post Surgical Pain Stated Complaint: POST SURGICAL PAIN Time Seen by Provider: 04/27/19 13:11 Primary Care Provider: TAYLOR RESTREPO PA-C [Primary Care Provider] - Follow up as needed Mode of Arrival: Wheelchair Notes: Patient is a 59-year-old female with a history of acid reflux, hypothyroidism, chronic kidney disease, hypertension, high cholesterol who presents the emergency department with a chief complaint of right knee pain. Patient reports she did have a right knee replacement on April [address] Baird. Patient reports she has been having home health come out to the house and has been doing therapy without any issues. Patient reports she is only been taking Tylenol for her discomfort. Patient reports increased pain to the right knee over the past 24 to 48 hours. Patient reports this morning she did wake up and noticed that her dressing over the right knee was saturated. Patient reports that prior to that there had been no bleeding. Patient reports she does take 81 mg aspirin but is not on any other blood thinners. Patient reports she was doing physical therapy yesterday and is not sure if a staple busted loose which is why she is bleeding. Patient states at that time she did not have any acute pain during physical therapy and that there was no initial bleeding. Patient reports she did initially have a redness around the site of the right knee but that has since improved. Patient reports the pain is located to the right knee and radiates up into her groin. Patient denies calf pain or swelling. Patient reports that she is a pain management patient has been taking 10 mg Percocet for years due to her chronic back pain. Patient reports she was released from getting medication from her pain management doctor while under the service of Dr. Baird. She reports she does have a follow-up appointment with Dr. Baird on Monday. She states that she was given a prescription to go home with for her pain but was told to take Tylenol. Patient did take 2 extra strength Tylenol about 3 hours ago. TRAVEL OUTSIDE OF THE [place] IN LAST 30 DAYS: No - Related Data Allergies/Adverse Reactions: acetaminophen [From Lortab] Allergy (Verified 04/27/19 13:13) fluconazole [From Diflucan] Allergy (Verified 04/27/19 13:13) Hives hydrocodone [From Lortab] Allergy (Verified 04/27/19 13:13) Past Medical History - General Information source: Patient - Social History Smoking Status: Current Every Day Smoker Chew tobacco use (# tins/day): No Frequency of alcohol use: None Drug Abuse: None Lives with: Family Family History: None Patient has suicidal ideation: No Patient has homicidal ideation: No - Past Medical History Cardiac Medical History: Reports: Hx Hypertension Denies: Hx Atrial Fibrillation, Hx Congestive Heart Failure, Hx Coronary Artery Disease, Hx Heart Attack, Hx Hypercholesterolemia, Hx Peripheral Vascular Disease, Hx Pulmonary Embolism, Hx Heart Murmur Pulmonary Medical History: Reports: Hx COPD Denies: Hx Asthma, Hx Bronchitis, Hx Pneumonia, Hx Respiratory Failure, Hx Sleep Apnea, Hx Tuberculosis EENT Medical History: Reports: None Neurological Medical History: Reports: None. Denies: Hx Cerebrovascular Accident, Hx Seizures Endocrine Medical History: Reports: Hx Hypothyroidism. Denies: Hx Hyperthyroi dism Renal/ Medical History: Reports: None. Denies: Hx Kidney Stones Malignancy Medical History: Reports: None. Denies: Hx Lung Cancer. Comment O nly: Hx Breast Cancer - right breast biopsy GI Medical History: Reports: Hx Gastroesophageal Reflux Disease, Hx Hiatal Hernia. Denies: Hx Crohn's Disease, Hx Irritable Bowel, Hx Liver Failure, Hx Pancreatitis, Hx Ulcer Musculoskeletal Medical History: Reports Hx Arthritis, Denies Hx Fibromyalgia, Denies Hx Muscular Dystrophy Skin Medical History: Reports None Psychiatric Medical History: Reports: Hx Depression Denies: Hx Bipolar Disorder, Hx Post Traumatic Stress Disorder, Hx Schizophrenia Traumatic Medical History: Reports: None. Denies: Hx Fractures Infectious Medical History: Reports: None Past Surgical History: Reports: Hx Section, Hx Hysterectomy. Denies: Hx Appendectomy, Hx Bowel Surgery, Hx Cholecystectomy, Hx Colostomy, Hx Coronary Artery Bypass Graft, Hx Gastric Bypass Surgery, Hx Herniorrhaphy, Hx Mastectomy, Hx Pacemaker, Hx Tonsillectomy, Hx Tubal Ligation Review of Systems - Review of Systems Constitutional: No symptoms reported EENT: No symptoms reported Cardiovascular: No symptoms reported Respiratory: No symptoms reported Gastrointestinal: No symptoms reported Genitourinary: No symptoms reported Female Genitourinary: No symptoms reported Musculoskeletal: See HPI Skin: No symptoms reported Hematologic/Lymphatic: No symptoms reported Neurological/Psychological: No symptoms reported Physical Exam - Vital signs Vitals: Temp Pulse Resp BP Pulse Ox 98.1 F 108 H 20 114/83 98 04/27/19 13:03 04/27/19 13:03 04/27/19 13:03 04/27/19 13:03 04/27/19 13:03 Interpretation: Tachycardic - Notes Notes: GENERAL: Well-appearing, well-nourished and in no acute distress. HEAD: Atraumatic, normocephalic. EYES: Pupils equal round and reactive to light, extraocular movements intact, sclera anicteric, conjunctiva are normal. ENT: Nares patent, oropharynx clear without exudates. Moist mucous membranes. NECK: Normal range of motion, supple without lymphadenopathy or JVD. LUNGS: Breath sounds clear to auscultation bilaterally and equal. No wheezes rales or rhonchi. HEART: Regular rate and rhythm without murmurs, rubs or gallops. ABDOMEN: Soft, nontender, normoactive bowel sounds. No guarding, no rebound. No masses appreciated. BACK: No cervical, thoracic, lumbar midline tenderness. No saddle anesthesia, normal distal neurovascular exam. GENITOURINARY: Deferred. EXTREMITIES: Opsite dressing noted over the right knee, the dressing is saturated with blood which is slowly oozing onto the pad underneath the leg. No surrounding erythema, skin warm to touch, swelling noted around the knee compared to left. NEUROLOGICAL: Cranial nerves II through XII grossly intact. Normal speech. PSYCH: Normal mood, normal affect. SKIN: Warm, Dry, normal turgor, no rashes or lesions noted. Course - Re-evaluation Re-evalutation: 04/27/19 15:54 I did speak with Dr. Smith regarding the patient case, our on the orthopedist, who recommends speaking with the on-call physician for [facility] at he is now with their practice. Patient does have a leukocytosis of 17.6. Patient did have a leukocytosis 15 prior to surgery. Patient denies fever. Patient nontoxic-appearing. Patient did have an elevation in her BUN and creatinine which is consistent with her chronic kidney disease and no change from her baseline. 04/27/19 16:13 I did speak with Dr. Carlton the physician who is on-call for [facility] for surgery. He states that he would remove the saturated dressing, using sterile technique he would clean the wound with Betadine, place multiple ABD pads and a new OpSite dressing. He does recommend using an Shad wrap over the wound to help provide compression. Patient to follow-up with Dr. Baird on Monday as scheduled. I did visualize the wound after the saturated dressing was removed. This does appear intact without any dehiscence, erythema or notable warmth. Patient does have a small ooze of blood in between 1 of the neida above the knee. This is a tiny ooze. Wound was then dressed as directed by Dr. Carlton. Patient is in agreement with the plan and given strict return precautions. - Vital Signs Vital signs: Temp Pulse Resp BP Pulse Ox 98.7 F 114 H 20 143/72 H 100 04/27/19 17:08 04/27/19 17:08 04/27/19 17:08 04/27/19 17:08 04/27/19 17:08 - Laboratory Result Diagrams: 04/27/19 13:45 04/27/19 13:45 Laboratory results interpreted by me: 04/27/19 04/27/19 13:45 13:45 WBC 17.6 H RBC 3.66 L Hgb 11.3 L Hct 33.3 L RDW 15.4 H Plt Count 586 H Band Neutrophils % 1 L Promyelocytes % 1 H Abs Neuts (Manual) 12.3 H Absolute Eos (Manual) 1.1 H BUN 27 H Creatinine 1.60 H Est GFR ( Amer) 40 L Est GFR (MDRD) Non-Af 33 L Glucose 70 L - Diagnostic Test Radiology reviewed: Reports reviewed Radiology results interpreted by me: 04/27/19 16:28 Knee X-Ray 04/27/19 14:39 IMPRESSION: Moderate suprapatellar knee joint effusion Calcification/ossification over the infrapatellar fat pad on lateral view No fracture. Hardware in good alignment. Discharge - Discharge Clinical Impression: Right knee pain Qualifiers: Chronicity: acute Qualified Code(s): M25.561 - Pain in right knee Post-operative complication Qualifiers: Surgical complication system/body Area: musculoskeletal system Surgical complication type: unspecified Procedure type: musculoskeletal Qualified C ode(s): M96.89 - Other intraoperative and postprocedural complications and disorders of the musculoskeletal system Condition: Stable Disposition: HOME, SELF-CARE Additional Instructions: *Today was seen in the emergency department for bleeding of the dressing over your recent right knee replacement. We did obtain blood work which was unremarkable compared to previous visits. I did speak with the on-call ph ysician for [facility] for surgery he did recommend replacing the bandage and applying multiple ABD pads to the wound. Please keep the dressing clean dry and intact. We have placed an shad wrap over the bandage. Please wear this for the next few hours to aid in compression which should help with the bleeding. Do not sleep with the Shad bandage on it. You can use the Shad bandage when you are up and walking around. Please return to the emergency department if you have any excessive bleeding that is saturating the dressing that we have placed, run a fever, have increased pain or any new or worsening symptoms. Please take Tylenol as instructed by the surgeon at time of discharge. Referrals: TAYLOR RESTREPO PA-C [Primary Care Provider] - Follow up as needed
[2019-04-27] MEDS ORDERED: OXYCODONE HCL IR 5 MG TABLET PO ONE (15:29)
--- NOTE | 2019-04-27 15:33 | RADIOLOGY REPORT (SQ) ---
EXAM DESCRIPTION: KNEE RIGHT 4 VIEWS COMPLETED DATE/TIME: 04/27/2019 3:18 pm REASON FOR STUDY: right knee pain, recent knee replacement COMPARISON: 04/17/2019 right knee two views NUMBER OF VIEWS: Four views. TECHNIQUE: AP, lateral, and both oblique radiographic images acquired of the right knee. LIMITATIONS: None. FINDINGS: MINERALIZATION: Normal. BONES: Right total knee replacement with patellar resurfacing. No lucency around the hardware worris ome for loosening. No fracture. JOINT: Moderate suprapatellar knee joint effusion. 1.4 cm ossified density along the infrapatellar f at pad on lateral view. SOFT TISSUES: Skin neida are present over the anterior knee joint. OTHER: No other significant finding. IMPRESSION: Moderate suprapatellar knee joint effusion Calcification/ossification over the infrapatellar fat pad on lateral view No fracture. Hardware in good alignment. TECHNICAL DOCUMENTATION: JOB ID: [id number] [employer]- All Rights Reserved Reading location - IP/workstation name: [email or web address]
[2019-04-27 17:09] VITALS: BP 143/72
== END 2019-04-27 17:20 | disposition home or self-care (01) ==
LOC: ER 13:00
DX: G89.18 Other acute postprocedural pain (principal); M25.561 Pain in right knee; M96.89 Other intraoperative and postprocedural complications and disorders of the musculoskeletal system; I10 Essential (primary) hypertension; F17.200 Nicotine dependence, unspecified, uncomplicated; Z90.710 Acquired absence of both cervix and uterus; Z88.6 Allergy status to analgesic agent; Z96.651 Presence of right artificial knee joint
CPT/HCPCS: 99283; 36415; 87070; 87205; 85025; 80053; 73564; A9270

== ENCOUNTER → 2019-06-19 | Outpatient (CLI) | payer MEDICARE, OTHER ==
[2019-06-19 13:07] LABS: ABSOLUTE EOSINOPHILS # (AUTO) 0.4 10^3/uL (0.0-0.6); ABSOLUTE LYMPHOCYTES (AUTO) 2.2 10^3/uL (0.5-4.7); ABSOLUTE MONOCYTES (AUTO) 1.2 10^3/uL (0.1-1.4); ABSOLUTE NEUT (AUTO) 9.7 10^3/uL (1.7-8.2); BASOPHILS % (AUTO) 0.3 % (0-2); HEMATOCRIT 39.4 % (36.0-47.0); HEMOGLOBIN 12.9 g/dL (12.0-15.5); LYMPHOCYTES % (AUTO) 16.4 % (13-45); MEAN CORPUSCULAR HEMOGLOBIN 29.7 pg (27.0-33.4); MEAN CORPUSCULAR HGB CONC 32.7 g/dL (32.0-36.0); MEAN CORPUSCULAR VOLUME 91 fl (80-97); MONOCYTES % (AUTO) 8.6 % (3-13); PLATELET COUNT 460 10^3/uL (150-450); RED BLOOD COUNT 4.34 10^6/uL (3.72-5.28); RED CELL DISTRIBUTION WIDTH 16.4 % (11.5-14.0); SEGMENTED NEUTROPHILS % (AUTO) 71.7 % (42-78); TOTAL CELLS COUNTED % (AUTO) 100 %; WHITE BLOOD COUNT 13.6 10^3/uL (4.0-10.5)
[2019-06-19 13:30] LABS: ANION GAP 13 (5-19); BLOOD UREA NITROGEN 28 mg/dL (7-20); CARBON DIOXIDE 20 mmol/L (22-30); CHLORIDE 107 mmol/L (98-107); GLUCOSE 88 mg/dL (75-110); POTASSIUM 4.5 mmol/L (3.6-5.0)
[2019-06-19 13:32] LABS: C-REACTIVE PROTEIN < 5.0 mg/L (<10.0)
[2019-06-19 14:12] LABS: ERYTHROCYTE SEDIMENTATION RATE 39 mm/hr (0-30)
== END ==
LOC: OD 12:21
PROVIDERS: ATTEND Orthopaedic Surgery
DX: Z96.651 Presence of right artificial knee joint (principal)
CPT/HCPCS: 36415; 80048; 85025; 85652; 86140

== ENCOUNTER → 2019-06-24 | Outpatient (CLI) | payer MEDICARE, OTHER ==
[2019-06-24 16:23] LABS: ABSOLUTE BASOPHILS # (AUTO) 0.1 10^3/uL (0.0-0.2); ABSOLUTE EOSINOPHILS # (AUTO) 0.6 10^3/uL (0.0-0.6); ABSOLUTE LYMPHOCYTES (AUTO) 2.2 10^3/uL (0.5-4.7); ABSOLUTE MONOCYTES (AUTO) 1.7 10^3/uL (0.1-1.4); ABSOLUTE NEUT (AUTO) 8.9 10^3/uL (1.7-8.2); BASOPHILS % (AUTO) 0.8 % (0-2); EOSINOPHILS % (AUTO) 4.3 % (0-6); HEMATOCRIT 35.5 % (36.0-47.0); HEMOGLOBIN 11.5 g/dL (12.0-15.5); LYMPHOCYTES % (AUTO) 16.5 % (13-45); MEAN CORPUSCULAR HEMOGLOBIN 29.8 pg (27.0-33.4); MEAN CORPUSCULAR HGB CONC 32.4 g/dL (32.0-36.0); MEAN CORPUSCULAR VOLUME 92 fl (80-97); MONOCYTES % (AUTO) 12.7 % (3-13); PLATELET COUNT 402 10^3/uL (150-450); RED BLOOD COUNT 3.85 10^6/uL (3.72-5.28); SEGMENTED NEUTROPHILS % (AUTO) 65.7 % (42-78); TOTAL CELLS COUNTED % (AUTO) 100 %; WHITE BLOOD COUNT 13.5 10^3/uL (4.0-10.5)
[2019-06-24 17:10] LABS: ANION GAP 11 (5-19); BLOOD UREA NITROGEN 40 mg/dL (7-20); C-REACTIVE PROTEIN 11.6 mg/L (<10.0); CALCIUM 9.5 mg/dL (8.4-10.2); CARBON DIOXIDE 20 mmol/L (22-30); CHLORIDE 104 mmol/L (98-107); GLUCOSE 88 mg/dL (75-110)
[2019-06-24 17:18] LABS: ERYTHROCYTE SEDIMENTATION RATE 41 mm/hr (0-30)
== END ==
LOC: OD 15:02
PROVIDERS: ATTEND Orthopaedic Surgery
DX: M25.561 Pain in right knee (principal)
CPT/HCPCS: 36415; 80048; 85025; 85652; 86140

== ENCOUNTER → 2019-07-03 | Outpatient (CLI) | payer MEDICARE, OTHER ==
[2019-07-03 13:36] LABS: ABSOLUTE BASOPHILS # (AUTO) 0.1 10^3/uL (0.0-0.2); ABSOLUTE EOSINOPHILS # (AUTO) 0.6 10^3/uL (0.0-0.6); ABSOLUTE LYMPHOCYTES (AUTO) 2.4 10^3/uL (0.5-4.7); ABSOLUTE MONOCYTES (AUTO) 1.3 10^3/uL (0.1-1.4); ABSOLUTE NEUT (AUTO) 7.3 10^3/uL (1.7-8.2); BASOPHILS % (AUTO) 0.5 % (0-2); HEMATOCRIT 38.2 % (36.0-47.0); HEMOGLOBIN 12.6 g/dL (12.0-15.5); LYMPHOCYTES % (AUTO) 20.2 % (13-45); MEAN CORPUSCULAR HEMOGLOBIN 29.8 pg (27.0-33.4); MEAN CORPUSCULAR HGB CONC 32.9 g/dL (32.0-36.0); MEAN CORPUSCULAR VOLUME 90 fl (80-97); MONOCYTES % (AUTO) 11.3 % (3-13); PLATELET COUNT 469 10^3/uL (150-450); RED BLOOD COUNT 4.23 10^6/uL (3.72-5.28); RED CELL DISTRIBUTION WIDTH 16.8 % (11.5-14.0); TOTAL CELLS COUNTED % (AUTO) 100 %; WHITE BLOOD COUNT 11.7 10^3/uL (4.0-10.5)
[2019-07-03 14:03] LABS: ANION GAP 14 (5-19); BLOOD UREA NITROGEN 28 mg/dL (7-20); C-REACTIVE PROTEIN 6.3 mg/L (<10.0); CALCIUM 9.5 mg/dL (8.4-10.2); CARBON DIOXIDE 18 mmol/L (22-30); CHLORIDE 105 mmol/L (98-107); GLUCOSE 87 mg/dL (75-110); POTASSIUM 4.8 mmol/L (3.6-5.0)
[2019-07-03 14:31] LABS: ERYTHROCYTE SEDIMENTATION RATE 40 mm/hr (0-30)
== END ==
LOC: OD 12:54
PROVIDERS: ATTEND Orthopaedic Surgery
DX: M25.561 Pain in right knee (principal)
CPT/HCPCS: 36415; 80048; 85025; 85652; 86140

== ENCOUNTER 2019-07-29 06:53 | Day surgery (SDC) | payer MEDICARE, OTHER ==
[2019-07-26 10:31] LABS: ABSOLUTE BASOPHILS # (AUTO) 0.1 10^3/uL (0.0-0.2); ABSOLUTE EOSINOPHILS # (AUTO) 0.5 10^3/uL (0.0-0.6); ABSOLUTE LYMPHOCYTES (AUTO) 1.9 10^3/uL (0.5-4.7); ABSOLUTE MONOCYTES (AUTO) 1.6 10^3/uL (0.1-1.4); ABSOLUTE NEUT (AUTO) 10.7 10^3/uL (1.7-8.2); BASOPHILS % (AUTO) 0.4 % (0-2); EOSINOPHILS % (AUTO) 3.5 % (0-6); HEMATOCRIT 38.6 % (36.0-47.0); HEMOGLOBIN 12.5 g/dL (12.0-15.5); LYMPHOCYTES % (AUTO) 13.1 % (13-45); MEAN CORPUSCULAR HEMOGLOBIN 29.3 pg (27.0-33.4); MEAN CORPUSCULAR HGB CONC 32.2 g/dL (32.0-36.0); MEAN CORPUSCULAR VOLUME 91 fl (80-97); MONOCYTES % (AUTO) 10.6 % (3-13); PLATELET COUNT 395 10^3/uL (150-450); RED BLOOD COUNT 4.25 10^6/uL (3.72-5.28); RED CELL DISTRIBUTION WIDTH 16.9 % (11.5-14.0); SEGMENTED NEUTROPHILS % (AUTO) 72.4 % (42-78); TOTAL CELLS COUNTED % (AUTO) 100 %; WHITE BLOOD COUNT 14.7 10^3/uL (4.0-10.5)
--- NOTE | 2019-07-26 10:42 | RADIOLOGY REPORT (SQ) ---
EXAM DESCRIPTION: CHEST PA/LATERAL COMPLETED DATE/TIME: 07/26/2019 10:17 am REASON FOR STUDY: PRE-OP COMPARISON: 03/29/2019 EXAM PARAMETERS: NUMBER OF VIEWS: two views TECHNIQUE: Digital Frontal and Lateral radiographic views of the chest acquired. RADIATION DOSE: NA LIMITATIONS: none FINDINGS: LUNGS AND PLEURA: No opacities, masses or pneumothorax. No pleural effusion. MEDIASTINUM AND HILAR STRUCTURES: No masses or contour abnormalities. HEART AND VASCULAR STRUCTURES: Heart normal size. No evidence for failure. BONES: No acute findings. HARDWARE: None in the chest. OTHER: Large hiatal hernia with gas fluid level. IMPRESSION: No acute cardiopulmonary process. Large hiatal hernia with gas fluid level, similar to prior. TECHNICAL DOCUMENTATION: JOB ID: [id number] 2010 [employer]- All Rights Reserved Reading location - IP/workstation name: [email or web address]
[2019-07-26 10:50] LABS: ANION GAP 14 (5-19); BLOOD UREA NITROGEN 38 mg/dL (7-20); CALCIUM 9.7 mg/dL (8.4-10.2); CARBON DIOXIDE 24 mmol/L (22-30); CHLORIDE 100 mmol/L (98-107); GLUCOSE 83 mg/dL (75-110)
--- NOTE | 2019-07-26 13:55 | EKG REPORT ---
SEVERITY:- NORMAL ECG - SINUS RHYTHM : Confirmed by: Anita Rodriguez MD 26-Jul-2019 13:54:09
[~2019-07-29 06:53] MED LIST changes: -BUPIVACAINE INJ/PF LIPOSOME/PF 266 MG/20 ML SDV INJ PRN; -CEFAZOLIN INJ 1 GM VIAL IV PRN; +CEFAZOLIN SODIUM 2 GM in DEXTROSE 5%-WATER 100 ML IV PRN; +DEXAMETHASONE SOD PHOSPHATE INJ 4 MG/1 ML VIAL ONE; +FENTANYL CITRATE INJ/PF 100 MCG/2 ML AMPUL ONE; -IBUPROFEN 800 MG in NORMAL SALINE 250 ML IV PRN; -LACTATED RINGERS 1000 ML IV PRN; +MIDAZOLAM 2 MG/2 ML INJ ONE; +ONDANSETRON HCL INJ/PF 4 MG/2 ML SDV ONE; -OXYCODONE HCL SR 10 MG TABLET PO PRN; -PANTOPRAZOLE SODIUM 20 MG TABLET.DR PO PRN; +PROPOFOL INJ 200 MG/20 ML VIAL IV ONE; +RINGERS SOLUTION,LACTATED 1,000 ML IV PRN; -VANCOMYCIN HCL 1,000 MG in DEXTROSE 5%-WATER 250 ML IV PRN
[2019-07-29] MEDS ORDERED: BUPIVACAINE HCL 0.5%-EPI 1:200000 INJ/PF 30 ML VIAL ONE (08:28)
[2019-07-29] MEDS ORDERED: MEPERIDINE HCL/PF INJ 25 MG/1 ML DISP.SYRIN IV PRN (10:04)
[2019-07-29] MEDS ORDERED: DIPHENHYDRAMINE HCL 50 MG/ML VIAL IV PRN (10:04)
[2019-07-29] MEDS ORDERED: ONDANSETRON HCL INJ/PF 4 MG/2 ML SDV IV PRN (10:04)
[2019-07-29] MEDS ORDERED: FENTANYL CITRATE INJ/PF 100 MCG/2 ML AMPUL IV PRN ×3 (10:04)
[2019-07-29] MEDS ORDERED: PROMETHAZINE HCL INJ 25 MG/1 ML VIAL IV PRN ×2 (10:04)
--- NOTE | 2019-07-29 10:16 | Operative Report ---
Operative Report DATE OF SURGERY: 07/29/19 PREOPERATIVE DIAGNOSIS: Right extensor mechanism disruption status post total k nee arthroplasty OPERATION: Reconstruction right extensor mechanism and patellar implant excision SURGEON: MAYCOL AVELAR ANESTHESIA: Spinal TISSUE REMOVED OR ALTERED: Cultures x1 to microbiology. Implant to CSS ESTIMATED BLOOD LOSS: 25 PROCEDURE: With the patient supine on the operating table the right lower extremities prepped and draped in sterile fashion. Limb is elevated for exsanguination tourniquet inflated 280 torr. The previous longitudinal incision is opened over its distal two thirds. Upon entering the retinacular layer it is clear that the patellar button is loose and that the lower half of the patella bone stock remains well attached to the patellar component but has been completely disconnected from the surrounding soft tissue. The button is easily excised. Cultures are taken of the synovial space. A longitudinal repair of the retinacular ensues with #2 FiberWire suture. Subsequently #5 FiberWire suture is used to make a check rein between the tibial tubercle and the proximal aspect of the remaining patella both with a cerclage construct as well as with a [id number] construct. The tourniquet is deflated. The wound is irrigated. Hemostasis obtained with electrocautery. The wound the remainder of the wound including subcutaneous tissue and dermis are closed using erupted Vicryl. The skin is reapproximated with neida. A sterile compressive dressing and knee immobilizer applied and the patient is returned to the PACU in satisfactory condition.
--- NOTE | 2019-07-29 10:24 | Discharge Summary ---
Discharge Summary (SDC) - Discharge Final Diagnosis: Right extensor mechanism disruption and patellar fracture Date of Surgery: 07/29/19 Discharge Date: 07/29/19 Condition: Good Forms: ASU Anesthesia D/C Instruction, Discharge POC-Surgical Service Treatment or Instructions: You can be weightbearing as tolerated but maintain the use of the knee immobilizer. Underlying compressive dressing can be removed on Monday. The OpSite that is covering the wound should be left in place until you return to the office. You can shower but please do not immerse it in a bathtub. Referrals: MAYCOL AVELAR MD [ACTIVE STAFF] - Discharge Diet: Regular Respiratory Treatments at Home: Deep Breathing/Coughing Discharge Activity: Balance Activity w/Rest, No tub bath Home Care Assistance: None Needed Report the Following to Your Physician Immediately: Shortness of Breath, Fever over 101 Degrees, Drainage-Foul Smelling
[2019-07-29] MEDS ORDERED: LORAZEPAM INJ 2 MG/1 ML VIAL ONE (10:42)
[2019-07-29] MEDS ORDERED: PROPOFOL INJ 200 MG/20 ML VIAL IV ONE (10:51)
[2019-07-29] MEDS ORDERED: LORAZEPAM INJ 2 MG/1 ML VIAL IV ONE (11:30)
[2019-07-29] MEDS ORDERED: OXYCODONE-ACETAMINOPHEN 5-325 MG TABLET ONE (13:31)
[2019-07-29] MEDS ORDERED: OXYCODONE-ACETAMINOPHEN 5-325 MG TABLET PO PRN (13:33)
[2019-07-29 15:42] VITALS: BP 145/68
== END 2019-07-29 15:30 | disposition home or self-care (01) ==
LOC: OROUT 06:53
PROVIDERS: ATTEND Orthopaedic Surgery
DX: M66.261 Spontaneous rupture of extensor tendons, right lower leg (principal); Z96.651 Presence of right artificial knee joint; M25.561 Pain in right knee; Z79.899 Other long term (current) drug therapy; Z79.82 Long term (current) use of aspirin; Z79.51 Long term (current) use of inhaled steroids; Z79.891 Long term (current) use of opiate analgesic; J44.9 Chronic obstructive pulmonary disease, unspecified; I10 Essential (primary) hypertension; E78.5 Hyperlipidemia, unspecified; G89.4 Chronic pain syndrome; F17.210 Nicotine dependence, cigarettes, uncomplicated; E66.9 Obesity, unspecified; Z68.41 Body mass index [BMI] 40.0-44.9, adult
CPT/HCPCS: 93005; 36415 ×2; 87070; 87205; 84132; 85025; 87075; 80048; 71046; 93010; 27664; 27350; L1830; C1713; J2250; J0690; J1100; A9270; J2060; J2405; J7060; J2704; 1392; J3010; J3490

== ENCOUNTER → 2020-01-27 | Outpatient (CLI) | payer MEDICARE, OTHER ==
--- NOTE | 2020-01-27 15:45 | RADIOLOGY REPORT (SQ) ---
EXAM DESCRIPTION: CHEST PA/LATERAL IMAGES COMPLETED DATE/TIME: 01/27/2020 3:32 pm REASON FOR STUDY: PRE-OP COMPARISON: 07/26/2019 EXAM PARAMETERS: NUMBER OF VIEWS: two views TECHNIQUE: Digital Frontal and Lateral radiographic views of the chest acquired. RADIATION DOSE: NA LIMITATIONS: none FINDINGS: LUNGS AND PLEURA: No opacities, masses or pneumothorax. No pleural effusion. MEDIASTINUM AND HILAR STRUCTURES: No masses or contour abnormalities. HEART AND VASCULAR STRUCTURES: Heart normal size. No evidence for failure. BONES: No acute findings. HARDWARE: None in the chest. OTHER: Large hiatal hernia is again noted. IMPRESSION: Large hiatal hernia. No other significant findings. TECHNICAL DOCUMENTATION: JOB ID: [id number] 2010 [employer]- All Rights Reserved Reading location - IP/workstation name: [email or web address]
[2020-01-27 17:19] LABS: ABSOLUTE BASOPHILS # (AUTO) 0.1 10^3/uL (0.0-0.2); ABSOLUTE EOSINOPHILS # (AUTO) 0.6 10^3/uL (0.0-0.6); ABSOLUTE LYMPHOCYTES (AUTO) 2.6 10^3/uL (0.5-4.7); ABSOLUTE MONOCYTES (AUTO) 1.3 10^3/uL (0.1-1.4); ABSOLUTE NEUT (AUTO) 7.5 10^3/uL (1.7-8.2); BASOPHILS % (AUTO) 1.1 % (0-2); EOSINOPHILS % (AUTO) 4.7 % (0-6); HEMATOCRIT 38.6 % (36.0-47.0); HEMOGLOBIN 12.6 g/dL (12.0-15.5); LYMPHOCYTES % (AUTO) 21.7 % (13-45); MEAN CORPUSCULAR HEMOGLOBIN 28.4 pg (27.0-33.4); MEAN CORPUSCULAR HGB CONC 32.7 g/dL (32.0-36.0); MEAN CORPUSCULAR VOLUME 87 fl (80-97); MONOCYTES % (AUTO) 10.5 % (3-13); PLATELET COUNT 452 10^3/uL (150-450); RED BLOOD COUNT 4.45 10^6/uL (3.72-5.28); RED CELL DISTRIBUTION WIDTH 15.7 % (11.5-14.0); TOTAL CELLS COUNTED % (AUTO) 100 %; WHITE BLOOD COUNT 12.1 10^3/uL (4.0-10.5)
[2020-01-27 17:53] LABS: ANION GAP 11 (5-19); BLOOD UREA NITROGEN 35 mg/dL (7-20); CALCIUM 9.3 mg/dL (8.4-10.2); CARBON DIOXIDE 21 mmol/L (22-30); CHLORIDE 108 mmol/L (98-107); GLUCOSE 86 mg/dL (75-110); POTASSIUM 4.4 mmol/L (3.6-5.0)
--- NOTE | 2020-01-27 18:23 | EKG REPORT ---
SEVERITY:- BORDERLINE ECG - SINUS RHYTHM PROBABLE LEFT ATRIAL ABNORMALITY NONSPECIFIC INTRAVENTRICULAR CONDUCTION DELAY : Confirmed by: Dallni Rosenberg MD 27-Jan-2020 18:23:08
== END ==
LOC: OD 15:04
PROVIDERS: ATTEND Orthopaedic Surgery
DX: Z01.810 Encounter for preprocedural cardiovascular examination (principal); Z01.811 Encounter for preprocedural respiratory examination; Z01.812 Encounter for preprocedural laboratory examination; M16.12 Unilateral primary osteoarthritis, left hip; K44.9 Diaphragmatic hernia without obstruction or gangrene
CPT/HCPCS: 36415; 71046; 80048; 85025; 93005; 93010

== ENCOUNTER 2020-02-17 09:37 | Day surgery (SDC) | payer MEDICARE, OTHER ==
[2020-02-12 12:15] LABS: APPEARANCE,URINE CLOUDY; BILIRUBIN,URINE NEGATIVE (NEGATIVE); COLOR,URINE YELLOW; GLUCOSE, URINE NEGATIVE (NEGATIVE); KETONES,URINE NEGATIVE (NEGATIVE); LEUKOCYTE ESTERASE,URINE LARGE (NEGATIVE); NITRITE,URINE POSITIVE (NEGATIVE); PROTEIN,URINE 100 mg/dL (NEGATIVE); URINE SPECIFIC GRAVITY 1.016; UROBILINOGEN,URINE NEGATIVE mg/dL (<2.0)
[~2020-02-17 09:37] MED LIST changes: +BUPIVACAINE INJ/PF LIPOSOME/PF 266 MG/20 ML SDV INJ PRN; +CEFAZOLIN INJ 1 GM VIAL IV PRN; -CEFAZOLIN SODIUM 2 GM in DEXTROSE 5%-WATER 100 ML IV PRN; -FENTANYL CITRATE INJ/PF 100 MCG/2 ML AMPUL ONE; +IBUPROFEN 800 MG in NORMAL SALINE 250 ML IV PRN; +LACTATED RINGERS 1000 ML IV PRN; +LIDOCAINE 2% INJ-PF (20 MG/ML) 2 ML AMPUL ONE; -MIDAZOLAM 2 MG/2 ML INJ ONE; +OXYCODONE HCL SR 10 MG TABLET PO PRN; +PANTOPRAZOLE SODIUM 20 MG TABLET.DR PO PRN; +PHENYLEPHRINE HCL INJ/PF 10 MG/1 ML SDV ONE; -PROPOFOL INJ 200 MG/20 ML VIAL IV ONE; -RINGERS SOLUTION,LACTATED 1,000 ML IV PRN; +SUCCINYLCHOLINE CHLORIDE INJ 200 MG/10 ML VIAL ONE; +VANCOMYCIN HCL 1,000 MG in DEXTROSE 5%-WATER 250 ML IV PRN
[2020-02-17] MEDS ORDERED: PANTOPRAZOLE SODIUM 20 MG TABLET.DR PO ONE (09:41)
[2020-02-17] MEDS ORDERED: OXYCODONE HCL SR 10 MG TABLET PO ONE (09:41)
[2020-02-17] MEDS ORDERED: CEFAZOLIN 1 GM/D5W RTU 1 GM/50 ML RTUPB IV ONE (09:42)
[2020-02-17] MEDS ORDERED: MIDAZOLAM 2 MG/2 ML INJ ONE (12:46)
[2020-02-17] MEDS ORDERED: PROPOFOL INJ 200 MG/20 ML VIAL IV ONE (12:47)
[2020-02-17] MEDS ORDERED: TRANEXAMIC ACID INJ/PF 1,000 MG/10 ML SDV ONE (13:02)
[2020-02-17] MEDS ORDERED: BUPIVACAINE HCL 0.25% /EPINEPHRINE INJ/PF 30 ML SDV ONE (13:17)
[2020-02-17] MEDS ORDERED: FENTANYL CITRATE INJ/PF 100 MCG/2 ML AMPUL ONE ×2 (14:55→16:25)
[2020-02-17] MEDS ORDERED: MORPHINE SULFATE 10 MG/ML INJ ONE (14:56)
--- NOTE | 2020-02-17 15:35 | Operative Report ---
Operative Report DATE OF SURGERY: 02/17/20 PREOPERATIVE DIAGNOSIS: Left hip arthritis OPERATION: Left hip arthroplasty SURGEON: MAYCOL AVELAR ANESTHESIA: GA TISSUE REMOVED OR ALTERED: Femoral head to pathology ESTIMATED BLOOD LOSS: 75 PROCEDURE: Implants used: Femur: Sherwood Accolade 2 stem size 4 Acetabular shell: 56 mm hemispherical shell Liner: 6 mm flat cross-link polyethylene liner Head: 36 mm chrome cobalt -5 neck The patient is placed in a right lateral decubitus position on the operating table. The left lower extremity and hindquarter is prepped and draped in a sterile fashion. A curvilinear incision was made over the greater trochanter a posterior approach the hip was taken. The femoral head is dislocated and the femoral neck transected using an oscillating saw. Attention was next turned to the acetabulum. Soft tissues cleared off the acetabulum using electrocautery. The acetabulum was then prepared using a series of hemispherical reamers until a 56 millimeters reamer is seated. Subsequently a 56 millimeters Sherwood titanium hemispherical shell is impacted into position and secured with one screw. A standard flat 36 millimeters cross- link liner is impacted into the shell. Attention was next turned to the femur. Access is gained to the femoral canal using a box osteotome to the piriformis fossa. The femur is then prepared using a series of broaches until a number 4 broach is seated. A trial reduction was now performed using a 36 millimeters head with -5 neck. Preoperative leg length was recreated and is excellent anterior posterior stability. A decision was made to proceed with the above construct. All trial implants were removed. The wound is irrigated with pulsed lavage. A number 4 stem is impacted into the femoral canal. A trial reduction was again performed with a 36 mm head and a -5 neck. Findings as previously. The hip was dislocated one last time and the final chrome-cobalt head is impacted onto the t runnion. The hip was reduced. Wound is copiously irrigated with pulsed lavage. Sent closed in layers using interrupted Vicryl followed by neida. A sterile dressing is applied and the patient's returned to recovery room in satisfactory patient.
[2020-02-17] MEDS ORDERED: ONDANSETRON 4 MG TAB.RAPDIS PO PRN (15:36)
[2020-02-17] MEDS ORDERED: TRANEXAMIC ACID INJ/PF 1,000 MG/10 ML SDV IV ONE (15:36)
[2020-02-17] MEDS ORDERED: MAG HYDROX/AL HYDROX/SIMETH SUSP 30 ML UDCUP PO PRN (15:36)
[2020-02-17] MEDS ORDERED: ONDANSETRON HCL INJ/PF 4 MG/2 ML SDV IV PRN (15:36)
[2020-02-17] MEDS ORDERED: ZOLPIDEM TARTRATE 5 MG TABLET PO PRN (15:36)
[2020-02-17] MEDS ORDERED: RINGERS SOLUTION,LACTATED 1,000 ML IV PRN (15:36)
[2020-02-17] MEDS ORDERED: PROMETHAZINE HCL INJ 25 MG/1 ML VIAL IV PRN ×2 (16:26)
[2020-02-17] MEDS ORDERED: DIPHENHYDRAMINE HCL 50 MG/ML VIAL IV PRN (16:26)
[2020-02-17] MEDS ORDERED: MEPERIDINE HCL/PF INJ 25 MG/1 ML DISP.SYRIN IV PRN (16:26)
[2020-02-17] MEDS ORDERED: MORPHINE SULFATE 10 MG/ML INJ IV PRN (16:26)
[2020-02-17] MEDS ORDERED: FENTANYL CITRATE INJ/PF 100 MCG/2 ML AMPUL IV PRN ×3 (16:26)
--- NOTE | 2020-02-17 16:44 | RADIOLOGY REPORT (SQ) ---
EXAM DESCRIPTION: PELVIS AP IMAGES COMPLETED DATE/TIME: 02/17/2020 4:35 pm REASON FOR STUDY: Post Op Long Cassette in PACU M16.12 UNILATERAL PRIMARY OSTEOARTHRITIS, LEFT HIP COMPARISON: None. NUMBER OF VIEWS: One view TECHNIQUE: Digital radiographic images of the pelvis post-procedure LIMITATIONS: None. FINDINGS: BONES: No worrisome or unexpected findings post-procedure. DEVICE: Status post total left hip replacement. SOFT TISSUES: No worrisome findings. Expected postoperative soft tissue changes. IMPRESSION: Satisfactory postoperative left hip. TECHNICAL DOCUMENTATION: JOB ID: [id number] 2010 [employer]- All Rights Reserved Reading location - IP/workstation name: [email or web address]
[2020-02-17] MEDS: OXYCODONE HCL IR 5 MG TABLET PO PRN (19:48)
[2020-02-17] MEDS: ACETAMINOPHEN 325 MG TABLET PO PRN (19:48)
[2020-02-17] MEDS ORDERED: (PENDING PHARMACY ID) (Topiramate [Topiramate] 50 MG) PO SCH (22:00)
[2020-02-17] MEDS: IBUPROFEN 800 MG in NORMAL SALINE 250 ML IV SCH (22:55)
[2020-02-17] MEDS: OXYCODONE HCL SR 10 MG TABLET PO SCH (22:56)
[2020-02-18] MEDS: OXYCODONE HCL IR 5 MG TABLET PO PRN ×2 (01:49→08:25)
[2020-02-18] MEDS ORDERED: VANCOMYCIN HCL 1,000 MG in DEXTROSE 5%-WATER 250 ML IV ONE (03:30)
[2020-02-18] MEDS: IBUPROFEN 800 MG in NORMAL SALINE 250 ML IV SCH (05:16)
[2020-02-18 06:53] LABS: HEMATOCRIT 36.9 % (36.0-47.0); HEMOGLOBIN 12.2 g/dL (12.0-15.5); MEAN CORPUSCULAR HEMOGLOBIN 28.3 pg (27.0-33.4); MEAN CORPUSCULAR VOLUME 86 fl (80-97); PLATELET COUNT 275 10^3/uL (150-450); RED CELL DISTRIBUTION WIDTH 15.8 % (11.5-14.0)
[2020-02-18 07:07] LABS: ANION GAP 8 (5-19); BLOOD UREA NITROGEN 43 mg/dL (7-20); CALCIUM 8.7 mg/dL (8.4-10.2); CARBON DIOXIDE 22 mmol/L (22-30); CHLORIDE 105 mmol/L (98-107); GLUCOSE 111 mg/dL (75-110); POTASSIUM 5.2 mmol/L (3.6-5.0)
--- NOTE | 2020-02-18 07:11 | PDOC DISCHARGE SUMMARY ---
Impression - Admit/DC Date/PCP Admission Date/Primary Care Provider: 02/17/20 09:37 TAYLOR RESTREPO PA-C Discharge Date: 02/18/20 - Discharge Diagnosis (1) Arthritis of left hip Is this a current diagnosis for this admission?: Yes - Additional Information Resuscitation Status: Full Code Discharge Diet: As Tolerated, Regular Discharge Activity: Balance Activity w/Rest, No Driving, No tub bath Referrals: MAYCOL AVELAR MD [ACTIVE STAFF] - 03/03/20 10:15 am Home Medications: Amlodipine Besylate [Norvasc 5 mg Tablet] 5 mg PO DAILY 11/22/18 Atorvastatin Calcium [Lipitor 20 mg Tablet] 20 mg PO DAILY 11/22/18 Bupropion HCl [Bupropion HCl Sr] 150 mg PO DAILY 11/22/18 Celecoxib [Celebrex 100 mg Capsule] 100 mg PO Q12 11/22/18 Desvenlafaxine Succinate [Desvenlafaxine Succinate ER] 100 mg PO DAILY 11/22/18 Gabapentin [Neurontin 300 mg Capsule] 300 mg PO Q8 11/22/18 Levothyroxine Sodium 75 mcg PO DAILY 11/22/18 Lisinopril/Hydrochlorothiazide [Lisinopril-Hctz 10-12.5 mg Tab] 1 tab PO DAILY 11/22/18 Omeprazole 20 mg PO BID 11/22/18 Topiramate 50 mg PO Q12 11/22/18 Nebulizer Accessories [Aeroneb Go] 1 puff PO DAILY 02/12/20 History of Present Illiness History of Present Illness: ANTHONY PEÑA is a 60 year old female Patient is a 60-year-old white female with progressive left hip pain and functional disability second osteoarthritis. Patient is admitted for elective left hip arthroplasty. Hospital Course Hospital Course: Patient is admitted through the operating where she undergoes uncomplicated left hip arthroplasty. She is returned to the floor in satisfactory condition. Patient makes modest progress with physical therapy on the day of surgery and pain is well controlled. Physical Exam Vital Signs: Temp Pulse Resp BP Pulse Ox 36.5 C 78 17 113/62 98 02/18/20 04:00 02/18/20 04:00 02/18/20 04:00 02/18/20 04:00 02/18/20 06:04 Intake & Output 02/17/20 02/18/20 02/19/20 06:59 06:59 06:59 Intake Total 7259 Output Total 250 Balance 7009 Weight 112 kg General appearance: PRESENT: no acute distress, obese Head exam: PRESENT: normocephalic Respiratory exam: PRESENT: unlabored Cardiovascular exam: PRESENT: RRR Pulses: PRESENT: +1 pedal pulses bilateral Vascular exam: PRESENT: normal capillary refill GI/Abdominal exam: PRESENT: soft Musculoskeletal exam: PRESENT: other - Left hip dressing is clean dry and intact. Leg lengths are equal. Distal neurovascular examination is intact. Results Laboratory Results: Potassium 4.8 mmol/L (3.6-5.0) 02/17/20 10:45 Urine Color YELLOW 02/12/20 10:15 Urine Appearance CLOUDY 02/12/20 10:15 Urine pH 6.0 (5.0-9.0) 02/12/20 10:15 Ur Specific [place] 1.016 02/12/20 10:15 Urine Protein 100 mg/dL (NEGATIVE) H 02/12/20 10:15 Urine Glucose (UA) NEGATIVE mg/dL (NEGATIVE) 02/12/20 10:15 Urine Ketones NEGATIVE mg/dL (NEGATIVE) 02/12/20 10:15 Urine Blood SMALL (NEGATIVE) H 02/12/20 10:15 Urine Nitrite POSITIVE (NEGATIVE) H 02/12/20 10:15 Urine Bilirubin NEGATIVE (NEGATIVE) 02/12/20 10:15 Urine Urobilinogen NEGATIVE mg/dL (<2.0) 02/12/20 10:15 Ur Leukocyte Esterase LARGE (NEGATIVE) H 02/12/20 10:15 Urine WBC (Auto) 112 /HPF 02/12/20 10:15 Urine RBC (Auto) 4 /HPF 02/12/20 10:15 U Hyaline Cast (Auto) 4 /LPF 02/12/20 10:15 Urine Bacteria (Auto) TRACE /HPF 02/12/20 10:15 Urine WBC Clumps FEW /HPF 02/12/20 10:15 Squamous Epi Cells Auto 1 /HPF 02/12/20 10:15 Urine Mucus (Auto) RARE /LPF 02/12/20 10:15 Urine Ascorbic Acid NEGATIVE (NEGATIVE) 02/12/20 10:15 COVID-19 Source See comment 02/12/20 11:47 COVID-19 (JAZMIN) Not Detected (Not Detect) 02/12/20 11:47 Blood Type O POSITIVE 02/17/20 10:45 Antibody Screen NEGATIVE 02/17/20 10:45 Impressions: Pelvis X-Ray 02/17/20 15:38 IMPRESSION: Satisfactory postoperative left hip. Plan Plan of Treatment: Discharge home on a weightbearing as tolerated basis with home health services and DME. Follow-up with Dr. Avelar and [facility] for surgery in 2 weeks for wound check. Stroke Is this a Stroke Patient?: No Stroke Pt being discharged on Anti-thrombolytic therapy?: Yes Acute Heart Failure Is this a Heart Failure Patient?: No
[2020-02-18] MEDS: ACETAMINOPHEN 325 MG TABLET PO PRN (07:42)
[2020-02-18] MEDS ORDERED: (PENDING PHARMACY ID) (Lisinopril/Hydrochlorothiazide [Lisinopril-Hctz 10-12.5 Mg Tab] 1 T PO SCH (10:00)
[2020-02-18] MEDS ORDERED: ASPIRIN 81 MG TABLET, ENT COATED PO SCH (10:00)
[2020-02-18] MEDS ORDERED: AMLODIPINE BESYLATE 5 MG TABLET PO SCH (10:00)
[2020-02-18] MEDS ORDERED: LEVOTHYROXINE SODIUM 0.05 MG TABLET PO SCH (10:00)
[2020-02-18] MEDS ORDERED: NEBULIZER ACCESSORIES PO SCH (10:00)
[2020-02-18] MEDS ORDERED: PRENATAL VITAMIN W DHA CAPSULE PO SCH (10:00)
[2020-02-18] MEDS ORDERED: ATORVASTATIN CALCIUM 20 MG TABLET PO SCH (10:00)
[2020-02-18] MEDS ORDERED: DESVENLAFAXINE SUCCINATE 100 MG PO SCH (10:00)
[2020-02-18] MEDS: SENNOSIDES/DOCUSATE 8.6-50 MG 1 EACH TABLET PO SCH ×2 (11:02→11:04)
[2020-02-18] MEDS: OXYCODONE HCL SR 10 MG TABLET PO SCH (11:02)
[2020-02-18] MEDS ORDERED: GABAPENTIN 300 MG CAPSULE PO SCH (11:30)
[2020-02-18 14:44] VITALS: BP 113/62
== END 2020-02-18 15:15 | disposition home health service (06) ==
LOC: UNDOADMIN 09:37 → OROUT 09:37 → INOR 09:37 → EDSTATUS 12:00 → 4S 17:08 → INOR 17:08 → OROUT 02-18 15:15 → UNDODISIN 02-18 15:15
PROVIDERS: ATTEND Orthopaedic Surgery
DX: M16.12 Unilateral primary osteoarthritis, left hip (principal); I10 Essential (primary) hypertension; E78.5 Hyperlipidemia, unspecified; K21.9 Gastro-esophageal reflux disease without esophagitis; F32.9 Major depressive disorder, single episode, unspecified; J44.9 Chronic obstructive pulmonary disease, unspecified; F41.9 Anxiety disorder, unspecified; G25.81 Restless legs syndrome; F17.210 Nicotine dependence, cigarettes, uncomplicated; E07.9 Disorder of thyroid, unspecified; E66.9 Obesity, unspecified; Z03.818 Encounter for observation for suspected exposure to other biological agents ruled out; Z79.899 Other long term (current) drug therapy; Z96.651 Presence of right artificial knee joint
CPT/HCPCS: 86900; 86901; 36415 ×2; 86850; 84132; 85027; 80048; 81001; 88304 ×2; 88311; 72170; 94799; 97110; 97116; 97162; 97530; 97535; 97166; 01214; 27130; C1776 ×4; C1713; U0003; A9270 ×11; J2250; J3490 ×3; J0690; J1100; J3010; J2270; J2370; J0330; J2405; J7060 ×2; J7050; J7120; J2704; J3370 ×2; J1741; C9803; 87635

== ENCOUNTER 2020-06-14 14:39 | Emergency (ER) | payer MEDICARE, OTHER ==
[2020-06-14] MEDS ORDERED: HYDROCODONE/ACETAMINOPHEN 5-325 MG TABLET PO ONE (14:55)
--- NOTE | 2020-06-14 14:59 | ER Document Report ---
ED Medical Screen (RME) - General Chief Complaint: Fall Stated Complaint: FALL/RIGHT KNEE PAIN,SWELLING Time Seen by Provider: 06/14/20 14:48 Primary Care Provider: TAYLOR RESTREPO PA-C [Primary Care Provider] - Follow up as needed TRAVEL OUTSIDE OF THE [place] IN LAST 30 DAYS: No - HPI Patient complains to provider of: Right knee pain Notes: 06/14/20 14:58 Patient with complaints of right knee pain. The patient has had multiple knee surgeries. She had a replacement that she had to have repaired in the past from a fall. She states that yesterday she slipped/tripped over her own feet in her kitchen and fell on her hardwood floor. She has a lot of pain in the right knee since. She denies any other injuries. No blood thinners. No numbness, ting ling, weakness. Exam: Nontoxic, no distress. Lungs clear and equal throughout. Heart sounds normal. Significant swelling and tenderness to the right knee. No redness. Normal pulse distally. An initial examination was made on the patient as part of the triage process, and it was determined a more comprehensive evaluation was necessary. Initial orders were placed and patient was transferred to another provider in the ED who assumed care and finished evaluation and plan. - Related Data Allergies/Adverse Reactions: fluconazole [From Diflucan] Allergy (Verified 06/14/20 14:47) Hives hydrocodone [From Lortab] Allergy (Verified 06/14/20 14:47) Home Medications: hydroco/apap. amlodipine. atorvastatin. bupropion. d iclofenac. lidocaine pad. topiramate. hydrochlorothiazide. anoro ellipt. desvenlafax Past Medical History - Social History Chew tobacco use (# tins/day): No Frequency of alcohol use: None Drug Abuse: None - Past Medical History Cardiac Medical History: Reports: Hx Hypertension Denies: Hx Atrial Fibrillation, Hx Congestive Heart Failure, Hx Coronary Artery Disease, Hx Heart Attack, Hx Hypercholesterolemia, Hx Peripheral Vascular Disease, Hx Pulmonary Embolism, Hx Heart Murmur Pulmonary Medical History: Reports: Hx COPD - OXYGEN PRN Denies: Hx Asthma, Hx Bronchitis, Hx Pneumonia, Hx Respiratory Failure, Hx Sleep Apnea, Hx Tuberculosis Neurological Medical History: Denies: Hx Cerebrovascular Accident, Hx Seizures Endocrine Medical History: Reports: Hx Hypothyroidism. Denies: Hx Graves' Disease, Hx Hyperthyroidism Renal/ Medical History: Denies: Hx Kidney Stones Malignancy Medical History: Denies: Hx Leukemia, Hx Lung Cancer. Comment Only: Hx Breast Cancer - right breast biopsy GI Medical History: Reports: Hx Gastroesophageal Reflux Disease, Hx Hiatal Hernia. Denies: Hx Crohn's Disease, Hx Irritable Bowel, Hx Liver Failure, Hx Pancreatitis, Hx Ulcer Musculoskeltal Medical History: Reports Hx Arthritis - GENERALIZED, Denies Hx Fibromyalgia, Denies Hx Muscular Dystrophy, Denies Hx Systemic Lupus Erythematosus Psychiatric Medical History: Reports: Hx Depression Denies: Hx Bipolar Disorder, Hx Post Traumatic Stress Disorder, Hx Schizophrenia Traumatic Medical History: Denies: Hx Fractures Infectious Medical History: Denies: Hx HIV Past Surgical History: Reports: Hx Section, Hx Hysterectomy, Hx Orthopedic Surgery - bilateral tkr. Denies: Hx Appendectomy, Hx Bowel Surgery, Hx Cholecystectomy, Hx Colostomy, Hx Coronary Artery Bypass Graft, Hx Gastric Bypass Surgery, Hx Herniorrhaphy, Hx Mastectomy, Hx Pacemaker, Hx Tonsillectomy, Hx Tubal Ligation - Immunizations Hx Diphtheria, Pertussis, Tetanus Vaccination: Yes Physical Exam - Vital signs Vitals: Temp Pulse Resp BP Pulse Ox 98.2 F 110 H 16 138/57 H 97 06/14/20 14:43 06/14/20 14:43 06/14/20 14:43 06/14/20 14:43 06/14/20 14:43 Course - Vital Signs Vital signs: Temp Pulse Resp BP Pulse Ox 98.2 F 110 H 16 138/57 H 97 06/14/20 14:47 06/14/20 14:43 06/14/20 14:43 06/14/20 14:43 06/14/20 14:43 Doctor's Discharge - Discharge Referrals: TAYLOR RESTREPO PA-C [Primary Care Provider] - Follow up as needed
--- NOTE | 2020-06-14 15:30 | RADIOLOGY REPORT (SQ) ---
EXAM DESCRIPTION: KNEE RIGHT 4 VIEWS IMAGES COMPLETED DATE/TIME: 06/14/2020 3:12 pm REASON FOR STUDY: fall, pain, swelling COMPARISON: 04/27/2019 NUMBER OF VIEWS: Four views. TECHNIQUE: AP, lateral, and both oblique radiographic images acquired of the right knee. LIMITATIONS: None. FINDINGS: MINERALIZATION: Normal. BONES: The patient is status post total knee arthroplasty; of note, the patellar component is no long er visualized (question revision). An ossific density is seen anterior to the femur is favored to re present residual patella. Additional calcific densities are seen anterior to the femoral component. JOINT: No effusion. SOFT TISSUES: No soft tissue swelling. No radio-opaque foreign body. OTHER: No other significant finding. IMPRESSION: Status post total knee arthroplasty; interval absence of the patellar component suggests revision. Additional findings suggests patellar tendon rupture versus patellar fracture with crania l retraction of the dominant proximal fragment. TECHNICAL DOCUMENTATION: JOB ID: [id number] 2010 [employer]- All Rights Reserved Reading location - IP/workstation name: [email or web address]
--- NOTE | 2020-06-14 17:21 | ER Document Report ---
ED General - General Chief Complaint: Fall Stated Complaint: FALL/RIGHT KNEE PAIN,SWELLING Time Seen by Provider: 06/14/20 14:48 Primary Care Provider: TAYLOR RESTREPO PA-C [Primary Care Provider] - Follow up as needed TRAVEL OUTSIDE OF THE [place] IN LAST 30 DAYS: No - HPI Notes: Patient is a 6-year-old female who presents emergency department for evaluation after a fall. She tripped over her feet in her kitchen yesterday and landed on her right knee, hitting her head. She did not lose consciousness. She has no neck or back pain. She had some pain in her knee but she really did not give it much thought. She had to get help to get up, but was able to ambulate. In the middle of the night she woke with worsening pain and a sharp stabbing pain in her knee, she states that it seemed more deformed. She presents here to the ER for further evaluation. The patient had a total knee replacement by Dr. Baird, then had a patellar injury and had to have a revision. - Related Data Allergies/Adverse Reactions: fluconazole [From Diflucan] Allergy (Verified 06/14/20 14:47) Hives hydrocodone [From Lortab] Allergy (Verified 06/14/20 14:47) Home Medications: hydroco/apap. amlodipine. atorvastatin. bupropion. diclofenac. lidocaine pad. topiramate. hydrochlorothiazide. anoro ellipt. desvenlafax Past Medical History - General Information source: Patient - Social History Smoking Status: Current Every Day Smoker Chew tobacco use (# tins/day): No Frequency of alcohol use: None Drug Abuse: None Family History: None Patient has homicidal ideation: No - Past Medical History Cardiac Medical History: Reports: Hx Hypertension Denies: Hx Atrial Fibrillation, Hx Congestive Heart Failure, Hx Coronary Artery Disease, Hx Heart Attack, Hx Hypercholesterolemia, Hx Peripheral Vascular Disease, Hx Pulmonary Embolism, Hx Heart Murmur Pulmonary Medical History: Reports: Hx COPD - OXYGEN PRN Denies: Hx Asthma, Hx Bronchitis, Hx Pneumonia, Hx Respiratory Failure, Hx Sleep Apnea, Hx Tuberculosis Neurological Medical History: Denies: Hx Cerebrovascular Accident, Hx Seizures Endocrine Medical History: Reports: Hx Hypothyroidism. Denies: Hx Graves' Disease, Hx Hyperthyroidism Renal/ Medical History: Denies: Hx Kidney Stones Malignancy Medical History: Denies: Hx Leukemia, Hx Lung Cancer. Comment Only: Hx Breast Cancer - right breast biopsy GI Medical History: Reports: Hx Gastroesophageal Reflux Disease, Hx Hiatal Hernia. Denies: Hx Crohn's Disease, Hx Irritable Bowel, Hx Liver Failure, Hx Pancreatitis, Hx Ulcer Musculoskeletal Medical History: Reports Hx Arthritis - GENERALIZED, Denies Hx Fibromyalgia, Denies Hx Muscular Dystrophy, Denies Hx Systemic Lupus Erythematosus Psychiatric Medical History: Reports: Hx Depression Denies: Hx Bipolar Disorder, Hx Post Traumatic Stress Disorder, Hx Schizophrenia Traumatic Medical History: Denies: Hx Fractures Infectious Medical History: Denies: Hx HIV Past Surgical History: Reports: Hx Section, Hx Hysterectomy, Hx Orthopedic Surgery - bilateral tkr. Denies: Hx Appendectomy, Hx Bowel Surgery, Hx Cholecystectomy, Hx Colostomy, Hx Coronary Artery Bypass Graft, Hx Gastric Bypass Surgery, Hx Herniorrhaphy, Hx Mastectomy, Hx Pacemaker, Hx Tonsillectomy, Hx Tubal Ligation - Immunizations Hx Diphtheria, Pertussis, Tetanus Vaccination: Yes Review of Systems - Review of Systems Constitutional: No symptoms reported EENT: No symptoms reported Cardiovascular: No symptoms reported Respiratory: No symptoms reported Gastrointestinal: No symptoms reported Genitourinary: No symptoms reported Musculoskeletal: See HPI Skin: No symptoms reported Neurological/Psychological: No symptoms reported Physical Exam - Vital signs Vitals: Temp Pulse Resp BP Pulse Ox 98.2 F 110 H 16 138/57 H 97 06/14/20 14:43 06/14/20 14:43 06/14/20 14:43 06/14/20 14:43 06/14/20 14:43 - Notes Notes: Is a pleasant 6-year-old female who appears her stated age, no acute distress. Head is normocephalic and atraumatic, pupils are equal and round, reactive to light. Oral mucosa is moist. Heart regular rate and rhythm, lungs show mildly diminished breath sounds but no wheezes, rales, rhonchi. Examination of the right lower extremity yields swelling proximal to the knee, and obvious minimal deformity. She has a well-healed and well approximated surgical scar consistent with a right TKR. Neurovascularly intact distally. Patient has significant pain with full extension of the knee, but is able to perform range of motion. Course - Re-evaluation Re-evalutation: 06/14/20 17:19 Patient presents to the emergency department for evaluation. She had imaging and medication as ordered through triage. Her x-ray appears to show a fractured patella with retraction of the fragments. Given her TKR with revision in the past, I will discussed this fracture with Dr. Murray, on-call orthopedist. 06/14/20 17:[address] Murray, he agrees with management of knee immobilizer and crutches. She is to follow-up in the office. - Vital Signs Vital signs: Temp Pulse Resp BP Pulse Ox 97.6 F 89 18 137/79 H 98 06/14/20 17:50 06/14/20 17:50 06/14/20 17:50 06/14/20 17:50 06/14/20 17:50 - Laboratory Results Critical Laboratory Results Reviewed: No Critical Results - Radiology Results Radiology Results Interpreted: 06/14/20 17:19 Knee X-Ray 06/14/20 14:55 IMPRESSION: Status post total knee arthroplasty; interval absence of the patellar component suggests revision. Additional findings suggests patellar tendon rupture versus patellar fracture with cranial retraction of the dominant proximal fragment. Critical Radiology Results Reviewed: No Critical Results Discharge - Discharge Clinical Impression: Fracture of right patella Condition: Stable Disposition: HOME, SELF-CARE Instructions: Fractured Patella ([facility]) Additional Instructions: Findings today on x-ray are consistent with either a fracture of the patella or a rupture of the patellar tendon. Wear knee immobilizer and use crutches, nonweightbearing. Follow-up with Dr. Baird this week. Return to the emergency department with worsening or new concerning symptoms of any sort. Referrals: TAYLOR RESTREPO PA-C [Primary Care Provider] - Follow up as needed
[2020-06-14 17:54] VITALS: BP 137/79
== END 2020-06-14 17:54 | disposition home or self-care (01) ==
LOC: ER 14:39
DX: S82.001A Unspecified fracture of right patella, initial encounter for closed fracture (principal); W01.0XXA Fall on same level from slipping, tripping and stumbling without subsequent striking against object, initial encounter; Y92.000 Kitchen of unspecified non-institutional (private) residence as the place of occurrence of the external cause; F17.200 Nicotine dependence, unspecified, uncomplicated; J44.9 Chronic obstructive pulmonary disease, unspecified; I10 Essential (primary) hypertension; Z96.653 Presence of artificial knee joint, bilateral
CPT/HCPCS: 99283; 73564; A9270